=== PATIENT | male | born 1955 | race Caucasian/White ===

== ENCOUNTER 2020-01-05 07:53 | Outpatient (CLI) | payer BC, SELFPAY ==
[2020-01-05 08:28] LABS: Alanine Aminotransferase 44 U/L (4-50); Albumin Level 4.2 g/dL (3.5-5.1); Alkaline Phosphatase 88 U/L (38-126); Aspartate Amino Transferase 30 U/L (17-59); Bilirubin,Total 0.3 mg/dL (0.2-1.3); Blood Urea Nitrogen 18 mg/dL (9-20); Calcium 8.7 mg/dL (8.4-10.2); Carbon Dioxide 28 mmol/L (22-30); Chloride 103 mmol/L (98-107); Cholesterol 142 mg/dL (0-200); Estimated Glomerular Filt Rate > 60; Glucose 210 mg/dL (75-110); HDL Direct 45 mg/dL; Potassium 3.8 mmol/L (3.4-5.0); Sodium 139 mmol/L (137-145); Triglycerides 183 mg/dL (<150)
[2020-01-05 08:29] LABS: Hemoglobin A1C 8.5 % (<5.7)
[2020-01-05 08:39] LABS: LDL Cholesterol Direct 72 mg/dL
[2020-01-05 08:57] LABS: Prostate Specific Antigen 1.3 ng/mL (< OR = 4.0)
== END 2020-01-05 07:54 | disposition home or self-care (01) ==
PROVIDERS: PCP Family Medicine; Visit Provider Physician Assistant
DX: I10 Essential (primary) hypertension (principal); E11.9 Type 2 diabetes mellitus without complications; E78.5 Hyperlipidemia, unspecified; Z12.5 Encounter for screening for malignant neoplasm of prostate
CPT/HCPCS: 36415; 80053; 80061; 83036; 84153; G0103

== ENCOUNTER 2020-05-14 08:42 | Outpatient (CLI) | payer BC, SELFPAY ==
[2020-05-14 09:13] LABS: Hemoglobin A1C 8.5 % (<5.7)
[2020-05-14 09:14] LABS: Alanine Aminotransferase 55 U/L (4-50); Albumin Level 4.4 g/dL (3.5-5.1); Alkaline Phosphatase 84 U/L (38-126); Anion Gap 9 mmol/L (8-16); Aspartate Amino Transferase 36 U/L (17-59); Bilirubin,Total 0.6 mg/dL (0.2-1.3); Blood Urea Nitrogen 21 mg/dL (9-20); Carbon Dioxide 30 mmol/L (22-30); Chloride 99 mmol/L (98-107); Estimated Glomerular Filt Rate > 60; Glucose 225 mg/dL (75-110); Potassium 3.8 mmol/L (3.4-5.0); Sodium 138 mmol/L (137-145)
== END 2020-05-14 08:43 | disposition home or self-care (01) ==
PROVIDERS: PCP Family Medicine; Visit Provider Family Medicine
DX: E11.9 Type 2 diabetes mellitus without complications (principal)
CPT/HCPCS: 36415; 80053; 83036

== ENCOUNTER 2020-05-29 12:00 | Outpatient (NON) | payer BC, SELFPAY ==
[2020-05-29 20:46] LABS: SARS-CoV-2 RNA PCR Positive
== END 2020-05-29 12:01 ==
LOC: ANHCOVIDDT 12:01
PROVIDERS: PCP Family Medicine; Visit Provider Physician Assistant
DX: U07.1 COVID-19 (principal)
CPT/HCPCS: 87635; C9803; U0003

== ENCOUNTER → 2020-07-17 14:17 | Outpatient (CLI) | payer BC, SELFPAY ==
--- NOTE | ~2020-07-17 | XR_ITS ---
XR chest 2V 07/17/2020 14:28 INDICATION: Shortness of breath. Covid 19. PROCEDURE: 2 views chest COMPARISON: No prior studies for comparison. FINDINGS: Fracture, dislocation or subluxation is not identified. The soft tissues appear within norm al limits. No foreign bodies are identified. IMPRESSION: 1: NO ACUTE BONE OR JOINT ABNORMALITY IDENTIFIED. Reviewed, dictated and finalized at location A. L CABINET FINISHER
== END ==
PROVIDERS: PCP Family Medicine; Visit Provider Physician Assistant
DX: R06.02 Shortness of breath (principal)
CPT/HCPCS: 71046

== ENCOUNTER 2020-08-15 07:37 | Outpatient (CLI) | payer BC, SELFPAY ==
[2020-08-15 08:32] LABS: Hemoglobin A1C 8.8 % (<5.7)
== END 2020-08-15 07:38 | disposition home or self-care (01) ==
PROVIDERS: PCP Family Medicine; Visit Provider Physician Assistant
DX: E11.9 Type 2 diabetes mellitus without complications (principal)
CPT/HCPCS: 36415; 83036

== ENCOUNTER → 2020-09-19 11:56 | Outpatient (CLI) | payer BC, SELFPAY ==
--- NOTE | ~2020-09-19 | XR_ITS ---
EXAMINATION: XR lumbar spine min 4V EXAM DATE: 09/19/2020 12:25 INDICATION: Right-sided low back pain for 3 weeks. TECHNIQUE: Lumber spine frontal, lateral, bilateral oblique projections. Coned down frontal and lat eral L5-S1 lumbar projections for interpretation. There is no prior study for comparison. FINDINGS: There is moderate disc disease L4-S1, mild to moderate from T12 to L2. No spondylolysis. Mo derate lumbar facet arthropathy. Vertebral body heights are maintained. There are no acute fractures identified. No endplate erosive change. Bilateral hip replacements. IMPRESSION: 1. Moderate lower lumbar spondylosis. 2. No acute findings. Reviewed, dictated and finalized at location A. OR ADMINISTRATIVE ASSISTANT
== END ==
PROVIDERS: PCP Family Medicine; Visit Provider Family Medicine
DX: M54.5 Low back pain (principal); M47.816 Spondylosis without myelopathy or radiculopathy, lumbar region
CPT/HCPCS: 72110

== ENCOUNTER → 2020-10-11 01:51 | Outpatient (CLI) | payer MEDICARE, BC, SELFPAY ==
[2020-10-11 18:53] LABS: SARS-CoV-2 RNA PCR Negative
== END ==
PROVIDERS: PCP Family Medicine; Visit Provider Internal Medicine Cardiovascular Disease
DX: Z01.812 Encounter for preprocedural laboratory examination (principal); Z20.822 Contact with and (suspected) exposure to COVID-19
CPT/HCPCS: C9803; U0003; U0005

== ENCOUNTER 2020-10-11 08:34 | Outpatient (CLI) | payer MEDICARE, BC, SELFPAY ==
[2020-10-11 09:15] LABS: Hemoglobin 16.5 g/dL (14.0-18.0); Mean Corpuscular HGB Conc 34.4 g/dl (32-36); Mean Corpuscular Hemoglobin 29.9 pg (26-34); Mean Corpuscular Volume 87.1 fl (80-100); Mean Platelet Volume 8.6 fl (7.4-10.4); Platelet Count Result 220 k/mm3 (150-375); Red Blood Count 5.51 M/mm3 (4.6-6.20); Red Cell Distribution Width 14.4 % (11.5-14.5); White Blood Count 6.7 K/mm3 (4.5-10.0)
[2020-10-11 09:31] LABS: Alanine Aminotransferase 39 U/L (4-50); Albumin Level 4.3 g/dL (3.5-5.1); Alkaline Phosphatase 72 U/L (38-126); Anion Gap 5 mmol/L (8-16); Aspartate Amino Transferase 31 U/L (17-59); Bilirubin,Total 0.4 mg/dL (0.2-1.3); Blood Urea Nitrogen 19 mg/dL (9-20); Calcium 9.5 mg/dL (8.4-10.2); Carbon Dioxide 32 mmol/L (22-30); Chloride 101 mmol/L (98-107); Cholesterol 134 mg/dL (0-200); Estimated Glomerular Filt Rate > 60; Glucose 141 mg/dL (75-110); HDL Direct 46 mg/dL; Potassium 3.9 mmol/L (3.4-5.0); Sodium 138 mmol/L (137-145); Triglycerides 138 mg/dL (<150)
[2020-10-11 09:32] LABS: Hemoglobin A1C 7.6 % (<5.7)
[2020-10-11 09:43] LABS: LDL Cholesterol Direct 60 mg/dL
== END 2020-10-11 08:35 | disposition home or self-care (01) ==
PROVIDERS: PCP Family Medicine; Visit Provider Family Medicine
DX: R06.02 Shortness of breath (principal); R53.83 Other fatigue; I10 Essential (primary) hypertension; E11.9 Type 2 diabetes mellitus without complications; E78.2 Mixed hyperlipidemia
CPT/HCPCS: 36415; 80053; 80061; 83036; 84443; 85027; C9803; U0003; U0005

== ENCOUNTER 2020-10-14 01:13 | Day surgery (SDC) | payer MEDICARE, BC, SELFPAY ==
[2020-10-13 12:44] VITALS: BMI 42.7
[2020-10-14] VITALS (9 sets, daily range): BP systolic 120–151; BP diastolic 75–92; PULSE 67–82; RESP 14–20; TEMP 36.4–36.6; O2SAT 94–98; BMI 42.7
--- NOTE | 2020-10-14 09:00 | SUR.PREOP ---
ARRIVES TO [facility] AMBULATORY W/ AT SIDE FOR SCHEDULED LHC W/ DR. AGUAYO. A&OX3, STEADY GAIT, DENIES CP OR SOB. ORIENTED TO ROOM, PLAN OF CARE, ORDERS, PROCEDURE. IV STARTED, CONSENT SIGNED, VS OBTAINED, SKIN PREPPED, PULSES MARKED. LABS HAVE ALREADY BEEN OBTAINED. VOICES NO C/O. WILL CONTINUE TO MONITOR.
--- NOTE | 2020-10-14 09:13 | WPDMODSED ---
Moderate Sedation Note-Pt Data Patient Data Allergies Allergy/AdvReac Type Severity Reaction Status Date / Time No Known Allergies Allergy Verified 09/12/20 10:53 Home Medications Medication Instructions Recorded Confirmed Type magnesium 250 mg tablet 250 mg PO DAILY 06/01/19 10/13/20 History omega-3 fatty acids-fish oil 360 1 cap PO DAILY 06/01/19 10/13/20 History mg-1,200 mg capsule amlodipine 10 mg tablet 10 mg PO DAILY #90 tablet 05/13/20 10/13/20 Rx blood sugar diagnostic #50 ea 05/13/20 05/13/20 Rx blood-glucose meter #1 ea 05/13/20 05/13/20 Rx lancets 28 gauge #100 ea 05/13/20 05/13/20 Rx metformin 1,000 mg tablet 1,000 mg PO BID #180 tablet 05/13/20 10/13/20 Rx montelukast 10 mg tablet 10 mg PO DAILY #90 tablet 05/13/20 10/13/20 Rx valsartan 320 1 tablet PO DAILY #90 tablet 05/13/20 10/13/20 Rx mg-hydrochlorothiazide 25 mg tablet sitagliptin 100 mg tablet 100 mg PO DAILY #90 tablet 05/15/20 10/13/20 Rx albuterol sulfate 90 mcg/actuation 1 inh INHALATION Q4H PRN #8.5 g 08/09/20 10/13/20 Rx aerosol inhaler dulaglutide 0.75 mg/0.5 mL 1.5 mg SUBCUT WEEKLY #18 ml 09/12/20 10/13/20 Rx subcutaneous pen injector metoprolol succinate 25 mg 25 mg PO DAILY #90 tablet 09/12/20 10/13/20 Rx tablet,extended release 24 hr aspirin 81 mg PO DAILY 10/13/20 10/13/20 History Current Medications: Active Medications Sodium Chloride (Normal Saline Iv) 500 mls @ 100 mls/hr IV CONT .Q5H JOSE M Sedation/Anesthesia: No previous sedation/anesthesia problems (including family history). [facility] Past Medical History Medical History Arthritis of both wrists Diabetes Hypertension Obesity Surgical History Surgical History History of carpal tunnel surgery (~2006) History of hip replacement (~2018) 2018- Right 2012- Left History of knee replacement (~2014) bilateral Family History Family History Father Diabetes mellitus Hypertension Carcinoma of colon Grandparent Diabetes mellitus Hypertension Mother Family history of glaucoma Hypertension Family history of elevated blood lipids Carcinoma of colon Family history of malignant neoplasm of breast in first degree relative Social History Social History Smoking status: Never smoker Second hand tobacco smoke exposure: No Alcohol intake: current Substance use: never Substance use type: does not use Living arrangements: with family Spiritual care concerns: No Mod Sed Physical Exam Physical Exam Pre Procedural Exam: Normal: Airway Hours since solid foods: 10 Hours since liquid intake: 10 Internal Medicine - PN: Obj Da Meds/Results Medications: Active Medications Generic Name Dose Route Start Last Admin Trade Name Freq PRN Reason Stop Dose Admin Sodium Chloride 500 mls @ 100 mls/hr 10/14/20 09:00 Normal Saline Iv IV CONT .Q5H [facility] ASA Classification/Sedation ASA Classification/Sedation Risks: Risks, benefits and alternatives explained and patient/family accepted plan for sedation. Patient re-evaluated immediately prior to sedation.
--- NOTE | 2020-10-14 10:39 | WPDHPUPDATE1 ---
History and Physical Update Update Date/Time: 10/14/20 10:39 History and Physical has been reviewed, including an updated exam of the patient. There are NO changes in the patient's condition. Risks, benefits, and alternatives have been discussed and questions answered. Patient agrees to proceed with procedure.
--- NOTE | 2020-10-14 11:20 | WPDCARDPROC ---
Cardiac Cath Procedure Note Date of procedure:: 10/14/20 Performing physician:: Saul Berger MD Procedure Procedure note:: LEFT HEART CATHETERIZATION AND CORONARY ANGIOGRAM REPORT DATE OF PROCEDURE:10/14/2020 INDICATION FOR PROCEDURE: shortness of breath, CHF with reduced ejection fraction, abnormal MPI BRIEF CLINICAL HISTORY: 65-year-old male with hypertension, type 2 diabetes mellitus, morbid obesity. Patient was referred by Dr. Munson for coronary angiogram in the setting of CHF with reduced ejection fraction and abnormal MPI. Patient had MPI done on 10/01/2020 which reportedly showed LVEF 37%; medium-sized area of moderate to severe apical, apical lateral, apical inferior infarction with ebonie-infarct ischemia involving the apical inferior and lateral segments. Benefits and risks of the procedure were discussed with the patient in depth, and informed consent was obtained prior to the procedure. Risks of the procedure include but are not limited to vascular complications including groin hematoma, retroperitoneal bleed, vessel perforation; periprocedural KS, cardiac arrhythmias, stroke, contrast induced nephropathy, and . After discussing all the benefits, risks and alternatives, patient was willing to proceed with the procedure. PROCEDURES PERFORMED: 1. Left heart catheterization- Selective left and right coronary angiogram; left ventriculogram and hemodynamic assessment 2. Selective right common femoral angiogram and deployment of Angio-Seal hemostatic device 3. Moderate sedation-CPT code 55120 MODERATE SEDATION: Midazolam 1 mg; fentanyl 25 mcg; Start time 1050 , Stop time 1115 ; Total [id number] time 25 minutes; Leydi Troy RN was trained observer for moderate sedation. ACCESS SITE: Right common femoral artery PROCEDURE NOTE: After obtaining informed consent, patient was brought to catheterization lab and prepped and draped in a usual sterile manner. After local anesthesia with lidocaine, right common femoral artery access was taken with micropuncture needle followed by insertion of a 6 Macanese sheath. Selective left and right coronary angiogram was performed using 5 Macanese JL5 and JR4 catheters respectively. Orthogonal views were taken. Next, a 5 Macanese pigtail catheter was advanced in the LV cavity and was flushed with normal saline. LV pressure measurement was performed. After this, left ventriculogram was performed. The catheter was flushed again, and gradient across the aortic valve was measured on the pullback of the catheter. Finally, selective right common femoral angiogram was performed followed by successful deployment of Angio-Seal vascular closure device. Patient tolerated procedure well without any immediate procedure related complications. FINDINGS: LEFT MAIN CORONARY: The left main coronary is a medium to large caliber, very short vessel, no significant focal stenosis. The vessel bifurcates LAD and left circumflex branches. LEFT ANTERIOR DESCENDING ARTERY: the LAD is a large caliber vessel in the proximal segment, tapers in the mid segment, becomes very tortuous, and divides into branches which do not reach the apex. The major diagonal branch is a medium caliber vessel, tortuous. No significant focal stenosis in the LAD or its branches. LEFT CIRCUMFLEX ARTERY: The left circumflex artery is a large caliber, tortuous vessel, continues as large size OM 1 branch without segment focal stenosis. RIGHT CORONARY ARTERY: The right coronary artery is a large caliber, tortuous vessel, gives rise to large-sized tortuous, PDA and PLV branches without significant focal stenosis. LEFT VENTRICULOGRAM: Ventricular ectopy was seen during the left ventriculogram. Mild LV systolic dysfunction, ejection fraction 40-45%. LVEDP 10 mmHg. HEMODYNAMIC ASSESSMENT: Opening pressure 105/71 mmHg , closing pressure 127/67 mmHg , LVEDP 10 , no significant gradient across aortic valve on the pullback of pigtail catheter. RIGHT CO
--- NOTE | 2020-10-14 15:30 | SUR.PHASEII ---
ALL DISCHARGE INSTRUCTIONS AND FOLLOW UP CARE DISCUSSED W/ PT. QUESTIONS ANSWERED. VOICED UNDERSTANDING. DISCHARGED HOME, OUT VIA WC TO 'S WAITING CAR W/ ALL PERSONAL BELONGINGS AND DISCHARGE PACKET. VOICES NO C/O. NO DISTRESS NOTED.
== END 2020-10-14 15:30 | disposition home or self-care (01) ==
PROVIDERS: PCP Family Medicine; Visit Provider Internal Medicine Cardiovascular Disease
PROC: 4A023N7 Measurement of Cardiac Sampling and Pressure, Left Heart, Percutaneous Approach (ICD-10-PCS; CPT 93452; principal; 2020-10-14 10:00)
DX: R94.39 Abnormal result of other cardiovascular function study (principal); R06.02 Shortness of breath; R07.89 Other chest pain; I11.0 Hypertensive heart disease with heart failure; I50.9 Heart failure, unspecified; I42.9 Cardiomyopathy, unspecified; E11.9 Type 2 diabetes mellitus without complications; E66.01 Morbid (severe) obesity due to excess calories; Z68.41 Body mass index [BMI] 40.0-44.9, adult; Z79.4 Long term (current) use of insulin; Z79.84 Long term (current) use of oral hypoglycemic drugs; Z79.82 Long term (current) use of aspirin
CPT/HCPCS: 93458; C1760; C1887; C1894; G0269; J1644; J2250; J3010; J7040

== ENCOUNTER 2020-11-05 08:16 | Outpatient (CLI) | payer MEDICARE, BC, SELFPAY ==
[2020-11-05 09:06] LABS: Anion Gap 5 mmol/L (8-16); Blood Urea Nitrogen 18 mg/dL (9-20); Calcium 8.6 mg/dL (8.4-10.2); Carbon Dioxide 29 mmol/L (22-30); Chloride 105 mmol/L (98-107); Estimated Glomerular Filt Rate > 60; Glucose 133 mg/dL (75-110); Potassium 3.8 mmol/L (3.4-5.0); Sodium 139 mmol/L (137-145)
== END 2020-11-05 08:17 | disposition home or self-care (01) ==
PROVIDERS: PCP Family Medicine; Visit Provider Internal Medicine Cardiovascular Disease
DX: E11.59 Type 2 diabetes mellitus with other circulatory complications (principal); I10 Essential (primary) hypertension; I42.8 Other cardiomyopathies
CPT/HCPCS: 36415; 80048

== ENCOUNTER 2020-11-28 07:32 | Outpatient (CLI) | payer MEDICARE, BC, SELFPAY ==
[2020-11-28 08:09] LABS: Anion Gap 5 mmol/L (8-16); Blood Urea Nitrogen 19 mg/dL (9-20); Calcium 8.4 mg/dL (8.4-10.2); Carbon Dioxide 29 mmol/L (22-30); Chloride 105 mmol/L (98-107); Estimated Glomerular Filt Rate > 60; Glucose 155 mg/dL (75-110); Potassium 3.4 mmol/L (3.4-5.0); Sodium 139 mmol/L (137-145)
== END 2020-11-28 07:33 | disposition home or self-care (01) ==
PROVIDERS: PCP Family Medicine; Visit Provider Internal Medicine Cardiovascular Disease
DX: I42.9 Cardiomyopathy, unspecified (principal)
CPT/HCPCS: 36415; 80048

== ENCOUNTER 2020-12-15 07:53 | Outpatient (CLI) | payer MEDICARE, BC, SELFPAY ==
--- NOTE | 2020-12-17 13:29 | WPDHOMESLEEP ---
Sleep Study - Home Unattended Date of Study: 12/15/20 Ordering Provider: Seamus Munson MD Interpreting Provider: Danyell Mustafa MD Home Sleep Study Type: Apnea Link Air Height: 1.83 m Weight: 138.346 kg Body Mass Index: 41.3 Neck Circumference (inches): 18.25 [place]: 9 Reason for Sleep Study Tired in the daytime, hypersomnolence, shortness of breath after COVID-19 Sleep History Olegario Garcia is a 65-year-old man who is tired all the time. This is been going on for 6 months after he had COVID-19. 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 He had a cardiac catheterization that showed no blockages but 1 area of his heart was not working properly. He was referred for sleep evaluation. He wakes up during the night and has excessive daytime sleepiness. He does not awaken from sleep feeling short of breath. He does not awaken at night with heartburn, belching or coughing. He rarely snores. He does not snore loudly enough that others complain about it. He does not have trouble sleep with a cold. He does not wake up gasping for breath at night. He does not have breathing problems at night reported to him by others. He occasionally sweats excessively at night. He does not notice his heart pounding or beating irregularly at night. He occasionally falls asleep during the day but never falls asleep involuntarily and never falls asleep while driving. He does not have loss of muscle tone with strong emotion. He does not have daytime difficulties due to excessive sleepiness. He does not feel paralyzed on waking or falling asleep. He does not have vivid dreamlike scenes upon awakening or falling asleep. He does not feel afraid to go to sleep. He does not have nightmares. He occasionally remembers his dreams. He occasionally has racing thoughts. He never feels sad or depressed. He occasionally has anxiety. He does not have muscular tension. He does not notice parts of his body jerking. He does not kick at night. He does not have crawling and aching feelings in his legs. He rarely has leg cramps at night. He does not have morning jaw pain. He does not grind his teeth during sleep. He occasionally has bothered by pain in his back during the day. He is not awakened by pain at night. He rarely wakes up feeling stiff in the morning. He occasionally wakes up with sore or achy muscles. He occasionally wakes up with pain in the neck and spine. He has fatigue and sexual problems. he stopped using testosterone shots in the beginning of September. He has seasonal allergies. He has chronic pain with arthritis. Normal bedtime is 11:00 p.m. falling asleep within 30 seconds typically waking twice at night to go urinate, then he will stay awake for a while just thinking about different things in his life. He takes him an hour to get back to sleep. He wakes the morning at 7:00 a.m.. He estimates getting 7-1/2 hours of sleep at night. Habits: never smoked tobacco. Caffeine 3 times a week. No alcohol or recreational drugs. [facility] Past Medical History Medical History (Updated 12/17/20 @ 13:50 by Danyell Mustafa MD) Arthritis of both wrists Diabetes Dyspnea on exertion Fatigue Hypertension Obesity Seasonal allergies Surgical History Surgical History History of carpal tunnel surgery (~2006) History of hip replacement (~2018) 2018- Right 2011- Left History of knee replacement (~2014) bilateral Family History Family History Father Diabetes mellitus Hypertension Carcinoma of colon Grandparent Diabetes mellitus Hypertension Mother Family history of glaucoma Hypertension Family history of elevated blood lipids Carcinoma of colon Family history of malignant neoplasm of breast in first degree relative Social History Social History (Reviewed 12/17/20 @ 13:30 by Danyell Gorman
[2020-12-17 13:34] VITALS: BMI 41.3
== END 2020-12-15 07:54 | disposition home or self-care (01) ==
LOC: ANHCSM 07:54
PROVIDERS: PCP Family Medicine; Visit Provider Internal Medicine Cardiovascular Disease
DX: G47.33 Obstructive sleep apnea (adult) (pediatric) (principal)
CPT/HCPCS: 95806

== ENCOUNTER 2021-01-06 07:44 | Outpatient (CLI) | payer MEDICARE, BC, SELFPAY ==
[2021-01-06 08:08] LABS: Hemoglobin A1C 6.3 % (<5.7)
[2021-01-06 08:10] LABS: Alanine Aminotransferase 21 U/L (4-50); Alkaline Phosphatase 84 U/L (38-126); Anion Gap 11 mmol/L (8-16); Aspartate Amino Transferase 22 U/L (17-59); Bilirubin,Total 0.5 mg/dL (0.2-1.3); Blood Urea Nitrogen 16 mg/dL (9-20); Calcium 9.3 mg/dL (8.4-10.2); Carbon Dioxide 28 mmol/L (22-30); Chloride 105 mmol/L (98-107); Cholesterol 138 mg/dL (0-200); Estimated Glomerular Filt Rate > 60; Glucose 134 mg/dL (75-110); HDL Direct 40 mg/dL; Magnesium 2.2 mg/dL (1.6-2.3); Potassium 3.5 mmol/L (3.4-5.0); Sodium 144 mmol/L (137-145); Triglycerides 92 mg/dL (<150)
[2021-01-06 08:20] LABS: LDL Cholesterol Direct 63 mg/dL
[2021-01-06 08:39] LABS: Prostate Specific Antigen 2.6 ng/mL (< OR = 4.0)
== END 2021-01-06 07:45 | disposition home or self-care (01) ==
PROVIDERS: PCP Family Medicine; Visit Provider Physician Assistant
DX: Z12.5 Encounter for screening for malignant neoplasm of prostate (principal); E11.9 Type 2 diabetes mellitus without complications; E78.5 Hyperlipidemia, unspecified
CPT/HCPCS: 36415; 80053; 80061; 83036; 83735; 84153; G0103

== ENCOUNTER 2021-05-05 09:39 | Outpatient (CLI) | payer MEDICARE, BC, SELFPAY ==
[2021-05-05 10:07] LABS: Hematocrit 39.3 % (42.0-52.0); Mean Corpuscular HGB Conc 33.1 g/dl (32-36); Mean Corpuscular Hemoglobin 28.6 pg (26-34); Mean Corpuscular Volume 86.4 fl (80-100); Mean Platelet Volume 8.1 fl (7.4-10.4); Platelet Count Result 255 k/mm3 (150-375); Red Blood Count 4.55 M/mm3 (4.6-6.20); White Blood Count 7.6 K/mm3 (4.5-10.0)
[2021-05-05 10:18] LABS: Alanine Aminotransferase 18 U/L (4-50); Albumin Level 4.4 g/dL (3.5-5.1); Alkaline Phosphatase 114 U/L (38-126); Anion Gap 7 mmol/L (8-16); Aspartate Amino Transferase 20 U/L (17-59); Bilirubin,Total 0.3 mg/dL (0.2-1.3); Blood Urea Nitrogen 13 mg/dL (9-20); Calcium 9.1 mg/dL (8.4-10.2); Carbon Dioxide 30 mmol/L (22-30); Chloride 104 mmol/L (98-107); Cholesterol 135 mg/dL (0-200); Estimated Glomerular Filt Rate > 60; Glucose 116 mg/dL (65-110); HDL Direct 41 mg/dL; Potassium 3.8 mmol/L (3.4-5.0); Sodium 141 mmol/L (137-145); Triglycerides 100 mg/dL (<150)
[2021-05-05 10:24] LABS: Hemoglobin A1C 6.1 % (<5.7)
[2021-05-05 10:25] LABS: Creatinine Urine 245.7 mg/dL
[2021-05-05 10:29] LABS: LDL Cholesterol Direct 71 mg/dL
[2021-05-05 11:00] LABS: MALB Creatinine Ratio 96.5 mg/g (0-30)
[2021-05-07 17:36] LABS: Iron 55 ug/dL (49-181)
[2021-05-07 17:46] LABS: Percent Iron Saturation 18 % (20-50)
== END 2021-05-05 09:40 | disposition home or self-care (01) ==
LOC: ANHLAB 09:44
PROVIDERS: PCP Family Medicine; Visit Provider Family Medicine
DX: D64.9 Anemia, unspecified (principal); E78.2 Mixed hyperlipidemia; E11.9 Type 2 diabetes mellitus without complications
CPT/HCPCS: 36415; 80053; 80061; 82043; 82728; 83036; 83540; 83550; 84443; 85027

== ENCOUNTER 2021-05-29 08:12 | Outpatient (CLI) | payer MEDICARE, BC, SELFPAY ==
--- NOTE | 2021-06-16 17:30 | WPDSLEEPSTUD ---
Sleep Study Date of Study: 05/29/21 <Heather Cool DO - Last Filed: 06/16/21 17:55> Ordering Provider: Danyell Mustafa MD <Heather Cool DO - Last Filed: 06/16/21 17:55> Interpreting Physician: Heather Cool DO <Heather Cool, DO - Last Filed: 06/16/21 17:55> Sleep Study Type: CPAP Titration <Heather Cool DO - Last Filed: 06/16/21 17:55> Height: 1.83 m <Heather Cool DO - Last Filed: 06/16/21 17:55> Weight: 133.81 kg <Heather Cool DO - Last Filed: 06/16/21 17:55> Body Mass Index: 40.0 <Heather Cool DO - Last Filed: 06/16/21 17:55> Neck Circumference (inches): 18 <Heather Cool DO - Last Filed: 06/16/21 17:55> [place]: 11 <Heather Cool DO - Last Filed: 06/16/21 17:55> Reason for Sleep Study The patient had an HSAT on 12/15/2020 that showed moderate obstructive sleep apnea with an AHI of 20, desaturation to 70%, 16 minutes spent below 88% ; 3% of the study, snoring; 89% of the apneas scored as obstructive, and 11% were central/mixed. THe patient was not a candidate for an ASV titration due to an EF of 36% in September 2020. <Heather Cool, DO - Last Filed: 06/16/21 17:55> Sleep History Olegario Garcia is a 65 year old man with constant fatigue which started after COVID in June 2020. He had a home sleep test on December 15, 2020 which showed moderate obstructive sleep apnea with an AHI of 20, desaturation to 70% with a minority of apneas scored as central. He had a CPAP /BiPAP titration that did not have an optimal pressure. He had increased number of central apneas with application of positive pressure. He does need to have an ASV titration however this has not occurred yet. He started hemodialysis in December, and has a maturing fistula in the left forearm. He wakes up during the night, has excessive daytime sleepiness. He does not awaken from sleep feeling short of breath and does not have GERD symptoms at night. He rarely snores. He does not wake up gasping for breath at night. He occasionally sweats at night. He denies his heart pounding or beating irregularly at night. He occasionally falls asleep during the day but never falls asleep involuntarily and never falls asleep while driving. He does not have loss of muscle tone with strong emotion. He does not have daytime difficulties due to excessive sleepiness. He does not feel paralyzed on waking or falling asleep. He does not have vivid dreamlike scenes upon awakening or falling asleep. He does not feel afraid to go to sleep. He does not have nightmares. He occasionally remembers his dreams. He occasionally has racing thoughts. He never feels sad or depressed. He occasionally has anxiety. He does not have muscular tension. He does not notice parts of his body jerking. He does not kick at night. He does not have crawling and aching feelings in his legs. He rarely has leg cramps at night. He does not have morning jaw pain. He does not grind his teeth during sleep. He occasionally has bothered by pain in his back during the day. He is not awakened by pain at night. He rarely wakes up feeling stiff in the morning. He occasionally wakes up with sore or achy muscles. He occasionally wakes up with pain in the neck and spine. He has fatigue and sexual problems. he stopped using testosterone shots in the beginning of September. He has seasonal allergies. He has chronic pain with arthritis. Normal bedtime is 11:00 p.m. falling asleep within 30 seconds typically waking twice at night to go urinate, then he will stay awake for a while just thinking about different things in his life. He takes him an hour to get back to sleep. He wakes the morning at 7:00 a.m.. He estimates getting 7-1/2 hours of sleep at night. Habits: never smoked tobacco. Caffeine 3 times a week. No alcohol or recreational drugs. <Heather Cool, DO - Last Filed: 11
[2021-06-16 17:37] VITALS: BMI 40.0
== END 2021-05-30 08:47 | disposition home or self-care (01) ==
LOC: ANHCSM 08:15
PROVIDERS: PCP Family Medicine; Visit Provider Internal Medicine Critical Care Medicine
DX: G47.31 Primary central sleep apnea (principal)
CPT/HCPCS: 95811

== ENCOUNTER 2021-06-11 07:32 | Outpatient (CLI) | payer MEDICARE, BC, SELFPAY ==
[2021-06-11 08:16] LABS: Hematocrit 42.1 % (42.0-52.0); Hemoglobin 13.9 g/dL (14.0-18.0); Immature Reticulocyte Fraction 13.8 % (3.0-15.9); Mean Corpuscular Hemoglobin 28.7 pg (26-34); Mean Platelet Volume 8.3 fl (7.4-10.4); Platelet Count Result 210 k/mm3 (150-375); Red Blood Count 4.84 M/mm3 (4.6-6.20); Red Cell Distribution Width 16.9 % (11.5-14.5); Reticulocyte Hemoglobin Conten 35.5 pg (28.2-35.7); Reticulocyte Percent 1.96 % (0.7-4.3); Reticulocytes Absolute 0.09 B/L (32.2-175.7); White Blood Count 6.6 K/mm3 (4.5-10.0)
[2021-06-11 12:43] LABS: Folic Acid 15.4 ng/mL (2.76->20)
== END 2021-06-11 07:33 | disposition home or self-care (01) ==
PROVIDERS: PCP Family Medicine; Referring Provider Nurse Practitioner Adult Health; Visit Provider Family Medicine
DX: D64.9 Anemia, unspecified (principal); I42.8 Other cardiomyopathies
CPT/HCPCS: 36415; 82607; 82746; 85027; 85046

== ENCOUNTER 2021-07-02 11:04 | Emergency (ER) | payer MEDICARE, BC, SELFPAY ==
--- NOTE | ~2021-07-02 | XR_ITS ---
EXAMINATION: XR hand RT min 3V DATE: 07/02/2021 12:21 INDICATION: Dog bite with laceration to the proximal right hand TECHNIQUE: Posteroanterior, oblique and lateral views of the right hand were obtained. COMPARISON: 04/24/2020 FINDINGS: Soft tissue swelling at the dorsum of the right hand post proximal and distal to likely laceration ov erlying the midportion of the metacarpals. No evident soft tissue gas or radiopaque foreign bodies. A dvanced osteoarthritis at the radioscaphoid articulation and severe osteoarthritis at the lunocapitat e articulation of the midcarpal joint with mild proximal migration of the capitate. 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 Additional moderate osteoarthritis at the distal radioulnar brenda int and mild osteoarthritis at the triscaphe, first carpometacarpal and multiple metacarpophalangeal and interphalangeal joints. No periosteal reaction or acute appearing cortical erosion to suggest ost eomyelitis. IMPRESSION: 1. No lesion suspicious for osteomyelitis or other acute osseous abnormality. 2. 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 Reviewed, dictated and finalized at location A. THCARE PROJECT MANAGER IMPRESSION: 1. No lesion suspicious for osteomyelitis or other acute osseous abnormality. 2. 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
[2021-07-02 11:19] VITALS: BP 148/73; PULSE 85; RESP 15; O2SAT 100
[2021-07-02 12:00] VITALS: BP 140/70; PULSE 85; RESP 16; TEMP 36.7; O2SAT 99
[2021-07-02] MEDS: TETANUS,DIPHTHERIA,AC PERTUSSIS ADULT (0.5 ML) BOOSTRIX IM (13:09)
--- NOTE | 2021-07-02 13:15 | ED.WOUNDLAC ---
HPI - Wound/Laceration General Chief Complaint: Wound/Laceration Stated Complaint: right hand wound Time Seen by Provider: 07/02/21 11:45 Source: patient Mode of arrival: ambulatory Limitations: no limitations History of Present Illness HPI narrative: This is a 65-year-old male that presents to the emergency department for a dog bite. Reports he was playing with his dog today and the dog accidentally bit his hand instead of the toy. His dog is up-to-date on vaccinations. Patient is not up-to-date on his tetanus vaccine. Reports some swelling and pain to the area. Denies decreased range of motion or numbness. Related Data Home Medications Medication Instructions Recorded Confirmed magnesium 250 mg tablet 250 mg PO DAILY 06/01/19 06/03/21 omega-3 fatty acids-fish oil 360 1 cap PO DAILY 06/01/19 06/03/21 mg-1,200 mg capsule aspirin 81 mg PO DAILY 10/13/20 06/03/21 multivitamin 1 tablet PO DAILY 03/20/21 06/03/21 loratadine 10 mg tablet 10 mg PO DAILY 05/12/21 06/03/21 spironolactone 25 mg tablet 25 mg PO DAILY 06/03/21 06/03/21 Allergies Allergy/AdvReac Type Severity Reaction Status Date / Time No Known Allergies Allergy Verified 07/02/21 12:05 Review of Systems Review of Systems: CONSTITUTIONAL: Denies fever SKIN: Reports laceration NEUROLOGIC: Denies numbness All systems reviewed & are unremarkable except as noted in HPI and below PMFSH Past Medical History Medical History Arthritis of both wrists Cardiomyopathy Diabetes Dyspnea on exertion Encounter for immunization Fatigue Hypertension Microalbuminuria due to type 2 diabetes mellitus Obesity Seasonal allergies Surgical History Surgical History History of carpal tunnel surgery (~2006) History of hip replacement (~2017) 2018- Right 2011- Left History of knee replacement (~2014) bilateral S/P cardiac cath 09/2020 Normal coronaries. EF 40% Family History Family History Father Diabetes mellitus Hypertension Carcinoma of colon Grandparent Diabetes mellitus Hypertension Mother Family history of glaucoma Hypertension Family history of elevated blood lipids Carcinoma of colon Family history of malignant neoplasm of breast in first degree relative Social History Social History Second hand tobacco smoke exposure: No Alcohol intake: current Substance use: never Substance use type: does not use Spiritual care concerns: No Exam Narrative: GENERAL: Well-appearing, well-nourished, and in no acute distress. HEAD: Normocephalic, atraumatic. EYES: EOMI. EXTREMITIES: Normal range of motion. Right hand dorsal surface with 3 cm linear laceration into subcutaneous tissue with mild swelling to the area. No erythema or abnormal drainage. Wound is fairly well approximated. No active bleeding SKIN: Warm, dry, no rash. NEURO: No focal deficits. Alert and oriented x3. PSYCH: Normal mood and affect Course Vital Signs Vital signs: Vital Signs Pulse Rate 85 07/02/21 11:19 Respiratory Rate 15 07/02/21 11:19 Blood Pressure 148/73 H 07/02/21 11:19 Pulse Oximetry 100 07/02/21 11:19 Temperature 98.0 F 07/02/21 12:00 Pulse Rate 85 07/02/21 12:00 Respiratory Rate 16 07/02/21 12:00 Blood Pressure 140/70 07/02/21 12:00 Pulse Oximetry 99 07/02/21 12:00 Procedures Laceration Laceration 1: Date: 07/02/21 Time: 13:00 Site: hand Side (If applicable): right Size (cm): 3 Description: linear Depth: simple, single layer Pre-repair: irrigated extensively ====== Skin Level ====== ====== Subcutaneous Layer ====== ====== Muscle Layer ====== ====== Tendon Layer ====== Dressing: Wound t
[2021-07-02] MEDS: AMOXICILLIN/CLAVULANATE K 875-125 MG TAB 1 TABLET PO (13:21)
== END 2021-07-02 13:46 | disposition home or self-care (01) ==
PROVIDERS: Emergency Provider Emergency Medicine; PCP Family Medicine
DX: S61.451A Open bite of right hand, initial encounter (principal); M19.032 Primary osteoarthritis, left wrist; M19.031 Primary osteoarthritis, right wrist; I42.9 Cardiomyopathy, unspecified; E11.9 Type 2 diabetes mellitus without complications; I10 Essential (primary) hypertension; E66.9 Obesity, unspecified; Z23 Encounter for immunization; W54.0XXA Bitten by dog, initial encounter
CPT/HCPCS: 73130; 90471; 90715; 99283; A9270

== ENCOUNTER 2021-07-14 00:15 | Day surgery (SDC) | payer MEDICARE, BC, SELFPAY ==
[2021-07-02 15:12] VITALS: BMI 40.8
[2021-07-14 07:59] VITALS: BP 115/62; RESP 18; TEMP 36.5; O2SAT 98; BMI 40.8
[2021-07-14 08:18] LABS: Glucose Point of Care 140 mg/dl (65-105)
[2021-07-14] MEDS: LACTATED RINGERS 1,000 ML 150 ML IV CONT (08:18)
--- NOTE | 2021-07-14 08:22 | WPDGICN ---
Assessment and Plan Assessment and plan (1) Family hx of colon cancer: Code(s): Z80.0 - Family history of malignant neoplasm of digestive organs Status: Acute Assessment and Plan: Patient's mother and father both have had colon cancer. For this reason screening colonoscopy advised 5 year intervals at least. (2) History of colon polyps: Code(s): Z86.010 - Personal history of colonic polyps Status: Acute Assessment and Plan: Patient has a prior history of colon polyps himself suggesting genetic tendency given his family history. Surveillance colonoscopy is suggested at least every 5 years. GI Consult Note Consult date/time: 07/14/21 08:22 HPI: Olegario Garcia is a 65 year old male Presents for screening colonoscopy. Patient's current weight appetite bowel movements are normal. He denies any blood in his stools. Patient has a prior history of colon polyps. Family history is significant both mother and father have had colon cancer. Patient presents today for neoplasia screening. Review of Systems Review of Systems: All systems reviewed & are unremarkable except as noted in HPI and below PMFSH Past Medical History Medical History Arthritis of both wrists Cardiomyopathy Diabetes Dyspnea on exertion Encounter for immunization Fatigue Hypertension Microalbuminuria due to type 2 diabetes mellitus Obesity Seasonal allergies Surgical History Surgical History History of carpal tunnel surgery (~2006) History of hip replacement (~2018) 2018- Right 2011- Left History of knee replacement (~2014) bilateral S/P cardiac cath 09/2020 Normal coronaries. EF 40% Family History Family History Father Diabetes mellitus Hypertension Carcinoma of colon Grandparent Diabetes mellitus Hypertension Mother Family history of glaucoma Hypertension Family history of elevated blood lipids Carcinoma of colon Family history of malignant neoplasm of breast in first degree relative Social History Social History Second hand tobacco smoke exposure: No Alcohol intake: current Alcohol use details: rarely Substance use: never Substance use type: does not use Living arrangements: with family Spiritual care concerns: No Meds Home Medications and Allergies Home Medications Medication Instructions Recorded Confirmed Type magnesium 250 mg tablet 250 mg PO DAILY 06/01/19 07/14/21 History omega-3 fatty acids-fish oil 360 1 cap PO DAILY 06/01/19 07/14/21 History mg-1,200 mg capsule blood-glucose meter #1 ea 05/13/20 07/14/21 Rx aspirin 81 mg PO DAILY 10/13/20 07/14/21 History blood sugar diagnostic #100 ea 01/09/21 07/14/21 Rx cholecalciferol (vitamin D3) 50 50 mcg PO DAILY #90 cap 01/09/21 07/14/21 Rx mcg (2,000 unit) capsule hydrochlorothiazide 25 mg tablet 25 mg PO DAILY #90 tablet 01/09/21 07/14/21 Rx lancets 33 gauge #100 ea 01/09/21 07/14/21 Rx metoprolol succinate 50 mg 50 mg PO DAILY #90 tablet 01/09/21 07/14/21 Rx tablet,extended release 24 hr sacubitril 49 mg-valsartan 51 mg 1 tablet PO BID #60 tablet 01/09/21 07/14/21 Rx tablet dulaglutide 3 mg/0.5 mL 3 mg SUBCUT WEEKLY #6 ml 02/23/21 07/14/21 Rx subcutaneous pen injector metformin 1,000 mg tablet 1,000 mg PO BID #180 tablet 03/09/21 07/14/21 Rx montelukast 10 mg tablet 10 mg PO DAILY #90 tablet 03/09/21 07/14/21 Rx multivitamin 1 tablet PO DAILY 03/20/21 07/14/21 History loratadine 10 mg tablet 10 mg PO DAILY 05/12/21 07/14/21 History spironolactone 25 mg tablet 25 mg PO DAILY 06/03/21 07/14/21 History Allergies Allergy/AdvReac Type Severity Reaction Status Date / Time No Known Allergies Allergy Verified 07/14/21 07:57 Vital Signs Vital Sig
--- NOTE | 2021-07-14 08:29 | WPDANESEPPF ---
Anes - Initial Pre Proc Eval Procedure: Operation Date: 07/14/21 09:00 Proposed Procedures p Screening Colonoscopy - Silvestre Pabon MD Date/Time: 07/14/21 08:29 Surgeon: Silvestre Pabon MD Pre Op Diagnosis: hx of colon polyps, family hx colon ca Patient Data Age: 65 Gender: M Height: 1.83 m Weight: 136.5 kg Last Vital Signs Temp 97.7 F 07/14/21 07:59 Resp 18 07/14/21 07:59 BP 115/62 07/14/21 07:59 Pulse Ox 98 07/14/21 07:59 Allergies Allergy/AdvReac Type Severity Reaction Status Date / Time No Known Allergies Allergy Verified 07/14/21 07:57 Home Medications Medication Instructions Recorded Confirmed Type magnesium 250 mg tablet 250 mg PO DAILY 06/01/19 07/14/21 History omega-3 fatty acids-fish oil 360 1 cap PO DAILY 06/01/19 07/14/21 History mg-1,200 mg capsule blood-glucose meter #1 ea 05/13/20 07/14/21 Rx aspirin 81 mg PO DAILY 10/13/20 07/14/21 History blood sugar diagnostic #100 ea 01/09/21 07/14/21 Rx cholecalciferol (vitamin D3) 50 50 mcg PO DAILY #90 cap 01/09/21 07/14/21 Rx mcg (2,000 unit) capsule hydrochlorothiazide 25 mg tablet 25 mg PO DAILY #90 tablet 01/09/21 07/14/21 Rx lancets 33 gauge #100 ea 01/09/21 07/14/21 Rx metoprolol succinate 50 mg 50 mg PO DAILY #90 tablet 01/09/21 07/14/21 Rx tablet,extended release 24 hr sacubitril 49 mg-valsartan 51 mg 1 tablet PO BID #60 tablet 01/09/21 07/14/21 Rx tablet dulaglutide 3 mg/0.5 mL 3 mg SUBCUT WEEKLY #6 ml 02/23/21 07/14/21 Rx subcutaneous pen injector metformin 1,000 mg tablet 1,000 mg PO BID #180 tablet 03/09/21 07/14/21 Rx montelukast 10 mg tablet 10 mg PO DAILY #90 tablet 03/09/21 07/14/21 Rx multivitamin 1 tablet PO DAILY 03/20/21 07/14/21 History loratadine 10 mg tablet 10 mg PO DAILY 05/12/21 07/14/21 History spironolactone 25 mg tablet 25 mg PO DAILY 06/03/21 07/14/21 History Laboratory Tests 07/14/21 08:15 POC Capillary Glucose 140 mg/dl H mg/dl (65-105) Patient hx anesthesia problems: none Family hx anesthesia problems: none Results Review: All pre-operative results and documents have been reviewed as part of the pre-operative evaluation. [facility] Past Medical History Medical History Arthritis of both wrists Cardiomyopathy Diabetes Dyspnea on exertion Encounter for immunization Fatigue Hypertension Microalbuminuria due to type 2 diabetes mellitus Obesity Seasonal allergies Surgical History Surgical History History of carpal tunnel surgery (~2006) History of hip replacement (~2017) 2018- Right 2011- Left History of knee replacement (~2014) bilateral S/P cardiac cath 09/2020 Normal coronaries. EF 40% Family History Family History Father Diabetes mellitus Hypertension Carcinoma of colon Grandparent Diabetes mellitus Hypertension Mother Family history of glaucoma Hypertension Family history of elevated blood lipids Carcinoma of colon Family history of malignant neoplasm of breast in first degree relative Social History Social History Second hand tobacco smoke exposure: No Alcohol intake: current Alcohol use details: rarely Substance use: never Substance use type: does not use Living arrangements: with family Spiritual care concerns: No Anes - Eval Final PreProcedure Day of Procedure 07/14/21 08:29 Patient weight: morbidly obese Heart: regular rate and rhythm Lungs: clear to auscultation Airway: Mallampati scale class II Neurological: alert and oriented Last oral intake: >/= 8 hours ASA classification: III Emergent: no Anesthetic plan: proceed Anesthesia type and monitoring: general GIVS and standard monitoring Results Review: All pre-operative results and documents have been revi
[2021-07-14 09:22] VITALS: BP 93/60; PULSE 83; RESP 27; O2SAT 98
[2021-07-14 09:32] VITALS: BP 112/76; PULSE 82; RESP 24; O2SAT 98
[2021-07-14 09:42] VITALS: BP 123/76; PULSE 74; RESP 23; O2SAT 100
== END 2021-07-14 09:53 | disposition home or self-care (01) ==
PROVIDERS: PCP Family Medicine; Visit Provider Internal Medicine Gastroenterology
PROC: 0DJD8ZZ Inspection of Lower Intestinal Tract, Via Natural or Artificial Opening Endoscopic (ICD-10-PCS; CPT 45378; principal; 2021-07-14 09:00)
DX: Z12.11 Encounter for screening for malignant neoplasm of colon (principal); Z80.0 Family history of malignant neoplasm of digestive organs; D12.2 Benign neoplasm of ascending colon; K64.8 Other hemorrhoids; K57.30 Diverticulosis of large intestine without perforation or abscess without bleeding; K63.5 Polyp of colon; Z79.82 Long term (current) use of aspirin; Z79.4 Long term (current) use of insulin; I42.9 Cardiomyopathy, unspecified; R53.83 Other fatigue; I10 Essential (primary) hypertension; E11.9 Type 2 diabetes mellitus without complications; E66.01 Morbid (severe) obesity due to excess calories; Z68.41 Body mass index [BMI] 40.0-44.9, adult
CPT/HCPCS: 45385; 82948; 88305; J2001; J2704; J7120

== ENCOUNTER 2021-08-15 08:34 | Outpatient (CLI) | payer MEDICARE, BC, SELFPAY ==
[2021-08-15 09:29] LABS: Hematocrit 41.8 % (42.0-52.0); Hemoglobin 14.3 g/dL (14.0-18.0); Mean Corpuscular HGB Conc 34.2 g/dl (32-36); Mean Corpuscular Hemoglobin 30.3 pg (26-34); Mean Corpuscular Volume 88.6 fl (80-100); Mean Platelet Volume 8.7 fl (7.4-10.4); Platelet Count Result 198 k/mm3 (150-375); Red Blood Count 4.72 M/mm3 (4.6-6.20); Red Cell Distribution Width 15.9 % (11.5-14.5); White Blood Count 6.1 K/mm3 (4.5-10.0)
== END 2021-08-15 08:35 | disposition home or self-care (01) ==
PROVIDERS: PCP Family Medicine; Visit Provider Family Medicine
DX: D64.9 Anemia, unspecified (principal)
CPT/HCPCS: 36415; 85027

== ENCOUNTER 2021-09-01 09:43 | Outpatient (CLI) | payer MEDICARE, BC, SELFPAY ==
[2021-09-01 11:12] LABS: Anion Gap 5 mmol/L (8-16); Blood Urea Nitrogen 18 mg/dL (9-20); Calcium 9.5 mg/dL (8.4-10.2); Carbon Dioxide 28 mmol/L (22-30); Chloride 103 mmol/L (98-107); Estimated Glomerular Filt Rate > 60; Glucose 144 mg/dL (65-110); Magnesium 2.1 mg/dL (1.6-2.3); Potassium 4.9 mmol/L (3.4-5.0); Sodium 136 mmol/L (137-145)
[2021-09-01 11:27] LABS: Free T4 Free Thyroxine 0.86 ng/mL (0.78-2.19)
== END 2021-09-01 09:44 | disposition home or self-care (01) ==
LOC: ANHLAB 09:47
PROVIDERS: PCP Family Medicine; Visit Provider Internal Medicine Cardiovascular Disease
DX: I49.3 Ventricular premature depolarization (principal); E11.59 Type 2 diabetes mellitus with other circulatory complications; I15.2 Hypertension secondary to endocrine disorders
CPT/HCPCS: 36415; 80048; 83735; 84439; 84443

== ENCOUNTER 2021-11-10 09:17 | Outpatient (CLI) | payer MEDICARE, BC, SELFPAY ==
[2021-11-10 10:04] LABS: Hematocrit 42.8 % (42.0-52.0); Hemoglobin 14.3 g/dL (14.0-18.0); Mean Corpuscular HGB Conc 33.4 g/dl (32-36); Mean Corpuscular Volume 92.8 fl (80-100); Mean Platelet Volume 8.1 fl (7.4-10.4); Platelet Count Result 210 k/mm3 (150-375); Red Blood Count 4.61 M/mm3 (4.6-6.20); Red Cell Distribution Width 14.4 % (11.5-14.5); White Blood Count 6.4 K/mm3 (4.5-10.0)
[2021-11-10 10:14] LABS: Alanine Aminotransferase 29 U/L (4-50); Albumin Level 4.1 g/dL (3.5-5.1); Alkaline Phosphatase 81 U/L (38-126); Anion Gap 8 mmol/L (8-16); Aspartate Amino Transferase 26 U/L (17-59); Bilirubin,Total 0.5 mg/dL (0.2-1.3); Blood Urea Nitrogen 18 mg/dL (9-20); Calcium 8.7 mg/dL (8.4-10.2); Carbon Dioxide 27 mmol/L (22-30); Chloride 102 mmol/L (98-107); Cholesterol 146 mg/dL (0-200); Estimated Glomerular Filt Rate > 60; Glucose 143 mg/dL (65-110); HDL Direct 33 mg/dL; Potassium 4.2 mmol/L (3.4-5.0); Sodium 137 mmol/L (137-145); Triglycerides 143 mg/dL (<150)
[2021-11-10 10:25] LABS: LDL Cholesterol Direct 74 mg/dL
[2021-11-10 10:26] LABS: Hemoglobin A1C 6.5 % (<5.7)
== END 2021-11-10 09:18 | disposition home or self-care (01) ==
PROVIDERS: PCP Family Medicine; Visit Provider Physician Assistant
DX: D64.9 Anemia, unspecified (principal); Z13.1 Encounter for screening for diabetes mellitus; I10 Essential (primary) hypertension; E11.9 Type 2 diabetes mellitus without complications; Z13.220 Encounter for screening for lipoid disorders
CPT/HCPCS: 36415; 80053; 80061; 83036; 85027

== ENCOUNTER 2022-05-20 09:00 | Outpatient (CLI) | payer MEDICARE, BC, SELFPAY ==
[2022-05-20 09:33] LABS: Hemoglobin 14.4 g/dL (14.0-18.0); Mean Corpuscular HGB Conc 33.5 g/dl (32-36); Mean Corpuscular Hemoglobin 31.4 pg (26-34); Mean Corpuscular Volume 93.9 fl (80-100); Mean Platelet Volume 8.9 fl (7.4-10.4); Platelet Count Result 226 k/mm3 (150-375); Red Blood Count 4.58 M/mm3 (4.6-6.20); Red Cell Distribution Width 14.6 % (11.5-14.5); White Blood Count 5.8 K/mm3 (4.5-10.0)
[2022-05-20 09:49] LABS: Alanine Aminotransferase 70 U/L (6-50); Albumin Level 4.6 g/dL (3.5-5.1); Alkaline Phosphatase 73 U/L (38-126); Anion Gap 11 mmol/L (8-16); Aspartate Amino Transferase 50 U/L (17-59); Bilirubin,Total 0.6 mg/dL (0.2-1.3); Blood Urea Nitrogen 22 mg/dL (9-20); Carbon Dioxide 26 mmol/L (22-30); Chloride 99 mmol/L (98-107); Cholesterol 152 mg/dL (0-200); Estimated Glomerular Filt Rate > 60; Glucose 257 mg/dL (65-110); HDL Direct 40 mg/dL; Potassium 4.2 mmol/L (3.4-5.0); Sodium 136 mmol/L (137-145); Triglycerides 197 mg/dL (<150)
[2022-05-20 09:57] LABS: Hemoglobin A1C 9.3 % (<5.7)
[2022-05-20 09:58] LABS: LDL Cholesterol Direct 75 mg/dL
[2022-05-20 10:15] LABS: Prostate Specific Antigen 1.2 ng/mL (< OR = 4.0)
== END 2022-05-20 09:01 | disposition home or self-care (01) ==
PROVIDERS: PCP Family Medicine; Visit Provider Family Medicine
DX: Z12.5 Encounter for screening for malignant neoplasm of prostate (principal); E78.2 Mixed hyperlipidemia; E11.9 Type 2 diabetes mellitus without complications; I10 Essential (primary) hypertension; R06.00 Dyspnea, unspecified; R53.83 Other fatigue
CPT/HCPCS: 36415; 80053; 80061; 83036; 84153; 84443; 85027

== ENCOUNTER 2022-08-18 08:03 | Outpatient (CLI) | payer MEDICARE, BC, SELFPAY ==
[2022-08-18 08:49] LABS: Anion Gap 8 mmol/L (8-16); Blood Urea Nitrogen 17 mg/dL (9-20); Calcium 9.4 mg/dL (8.4-10.2); Carbon Dioxide 27 mmol/L (22-30); Chloride 104 mmol/L (98-107); Estimated Glomerular Filt Rate > 60; Glucose 168 mg/dL (65-110); Potassium 3.7 mmol/L (3.4-5.0); Sodium 139 mmol/L (137-145)
[2022-08-18 09:04] LABS: Creatinine Urine 154.1 mg/dL
[2022-08-18 09:10] LABS: MALB Creatinine Ratio 8.2 mg/g (0-30); Microalbumin Urine Random 12.7 mg/L (0-16.7)
[2022-08-18 09:21] LABS: Vitamin D 25 Hydroxy 50.2 ng/mL
[2022-08-20 15:44] LABS: C-Peptide 5.71 ng/mL (0.80-3.85)
== END 2022-08-18 08:04 | disposition home or self-care (01) ==
PROVIDERS: PCP Family Medicine; Visit Provider Nurse Practitioner Family
DX: D64.9 Anemia, unspecified (principal); E11.29 Type 2 diabetes mellitus with other diabetic kidney complication; R80.9 Proteinuria, unspecified; I10 Essential (primary) hypertension; E55.9 Vitamin D deficiency, unspecified
CPT/HCPCS: 36415; 80048; 82043; 82306; 82607; 84681

== ENCOUNTER 2022-11-03 14:30 | Outpatient (RCR) | payer MEDICARE, BC, SELFPAY ==
[2022-08-12 14:31] VITALS: BMI 45.2
[2022-08-12 15:14] VITALS: BMI 45.2
== END 2022-11-08 10:29 | disposition home or self-care (01) ==
LOC: ANHDMC 14:30
PROVIDERS: PCP Family Medicine; Visit Provider Nurse Practitioner Family
DX: E11.9 Type 2 diabetes mellitus without complications (principal); Z71.3 Dietary counseling and surveillance; Z71.89 Other specified counseling
CPT/HCPCS: 97802; G0108; G0109

== ENCOUNTER 2022-11-24 08:24 | Outpatient (CLI) | payer MEDICARE, BC, SELFPAY ==
[2022-11-24 09:20] LABS: Alanine Aminotransferase 46 U/L (6-50); Albumin Level 4.3 g/dL (3.5-5.1); Alkaline Phosphatase 63 U/L (38-126); Anion Gap 6 mmol/L (8-16); Aspartate Amino Transferase 33 U/L (17-59); Bilirubin,Total 0.6 mg/dL (0.2-1.3); Blood Urea Nitrogen 15 mg/dL (9-20); Carbon Dioxide 29 mmol/L (22-30); Chloride 102 mmol/L (98-107); Cholesterol 138 mg/dL (0-200); Estimated Glomerular Filt Rate > 60; Glucose 137 mg/dL (65-110); HDL Direct 38 mg/dL; Hemoglobin A1C 6.8 % (<5.7); Sodium 137 mmol/L (137-145); Triglycerides 151 mg/dL (<150)
[2022-11-24 09:32] LABS: LDL Cholesterol Direct 71 mg/dL
== END 2022-11-24 08:25 | disposition home or self-care (01) ==
PROVIDERS: PCP Family Medicine; Visit Provider Physician Assistant
DX: Z13.1 Encounter for screening for diabetes mellitus (principal); E11.9 Type 2 diabetes mellitus without complications; I10 Essential (primary) hypertension; Z13.220 Encounter for screening for lipoid disorders
CPT/HCPCS: 36415; 80053; 80061; 83036

== ENCOUNTER 2022-11-24 14:30 | Outpatient (RCR) | payer MEDICARE, BC, SELFPAY | END 2023-01-24 11:16 | disposition home or self-care (01) | LOC: ANHDMC 14:30 | PROVIDERS: PCP Family Medicine; Visit Provider Nurse Practitioner Family | DX: E11.9 Type 2 diabetes mellitus without complications (principal); Z71.89 Other specified counseling | CPT/HCPCS: G0109 ==

== ENCOUNTER 2023-07-21 08:23 | Outpatient (CLI) | payer MEDICARE, BC, SELFPAY ==
[2023-07-21 09:15] LABS: Alanine Aminotransferase 34 U/L (6-50); Albumin Level 4.2 g/dL (3.5-5.1); Alkaline Phosphatase 71 U/L (38-126); Anion Gap 8 mmol/L (8-16); Aspartate Amino Transferase 24 U/L (17-59); Bilirubin,Total 0.6 mg/dL (0.2-1.3); Blood Urea Nitrogen 21 mg/dL (9-20); Calcium 9.4 mg/dL (8.4-10.2); Carbon Dioxide 27 mmol/L (22-30); Chloride 103 mmol/L (98-107); Cholesterol 109 mg/dL (0-200); Estimated Glomerular Filt Rate > 60; Glucose 167 mg/dL (65-110); HDL Direct 42 mg/dL; Potassium 4.1 mmol/L (3.4-5.0); Sodium 138 mmol/L (137-145); Triglycerides 156 mg/dL (<150)
[2023-07-21 09:26] LABS: LDL Cholesterol Direct 46 mg/dL
[2023-07-21 09:28] LABS: Hemoglobin A1C 7.5 % (<5.7)
[2023-07-21 09:45] LABS: Prostate Specific Antigen 1.3 ng/mL (< OR = 4.0)
[2023-07-21 09:52] LABS: Creatinine Urine 110.2 mg/dL
[2023-07-21 09:56] LABS: MALB Creatinine Ratio 6.8 mg/g (0-30); Microalbumin Urine Random 7.5 mg/L (0-16.7)
== END 2023-07-21 08:24 | disposition home or self-care (01) ==
PROVIDERS: PCP Family Medicine; Visit Provider Physician Assistant
DX: Z12.5 Encounter for screening for malignant neoplasm of prostate (principal); E78.2 Mixed hyperlipidemia; E11.9 Type 2 diabetes mellitus without complications
CPT/HCPCS: 36415; 80053; 80061; 82043; 83036; 84153; G0103

== ENCOUNTER 2023-11-26 07:51 | Outpatient (CLI) | payer MEDICARE, BC, SELFPAY ==
[2023-11-26 08:53] LABS: Anion Gap 9 mmol/L (4-12); Blood Urea Nitrogen 27 mg/dL (9-20); Calcium 9.8 mg/dL (8.4-10.2); Carbon Dioxide 25 mmol/L (22-30); Chloride 104 mmol/L (98-107); Estimated Glomerular Filt Rate > 60; Glucose 186 mg/dL (65-110); Potassium 3.8 mmol/L (3.4-5.0); Sodium 138 mmol/L (137-145)
== END 2023-11-26 07:52 | disposition home or self-care (01) ==
LOC: ANHLAB 07:54
PROVIDERS: PCP Family Medicine; Visit Provider Internal Medicine Endocrinology, Diabetes & Metabolism
DX: E11.65 Type 2 diabetes mellitus with hyperglycemia (principal)
CPT/HCPCS: 36415; 80048; 82607

== ENCOUNTER 2025-02-11 09:21 | Outpatient (CLI) | payer MEDICARE, BC, SELFPAY ==
--- OUTSIDE RECORDS SUMMARY | 2025-02-11 09:27 | XMS_ITS | Referral Summary ---
Author Organization [facility] Address [address] [place] [id number] Care Team Providers Care Pantomimist Name Role Phone Lidya Leger MD Primary Care Provider Lidya Leger MD Unavailable [phone] Allergies No known active allergies Medications albuterol HFA (PROVENTIL HFA,VENTOLIN HFA,PROAIR HFA) 90 mcg/actuation inhaler USE 1 PUFF EVERY 4 HOURS NEEDED FOR SHORTNESS OF BREATH/WHEEZI NG 0 Active OneTouch Verio test strips strip USE TO TEST BLOOD SUGARS ONCE DAILY 0 Active OneTouch Verio Flex meter misc USE TO TEST BLOOD SUGARS DAILY DIRECTED 0 Active OneTouch Delica Plus Lancet 33 gauge misc USE DIRECTED TO TEST BLOOD SUGARS ONCE DAILY 0 Active metFORMIN (GLUCOPHAGE) 1,000 mg tablet Take 1 tablet (1,000 mg total) by mouth 2 (two) times a day 0 Active montelukast (SINGULAIR) 10 mg tablet Take 1 tablet (10 mg total) by mouth nightly 0 Active Lactobac no.41/Bifidobact no.7 (PROBIOTIC-10 ORAL) Take by mouth Active cholecalciferol (VITAMIN D-3) 2000 unit capsule Take 1 capsule (2,000 Units total) by mouth daily Active magnesium oxide (MAG-OX) 250 mg (150.8 mg elemental) tabletIndications: hypomagnesemia 1 tablet (250 mg total) daily Active loratadine (CLARITIN) 10 mg tablet Take 1 tablet (10 mg total) by mouth daily Active acetaminophen (TYLENOL) 325 mg tablet Take 2 tablets (650 mg total) by mouth as needed for pain Active multivitamin capsule Take 1 capsule by mouth daily Active aspirin 81 mg enteric coated tabletIndications: Abnormal stress test Take 1 tablet (81 mg total) by mouth daily 30 tablet 11 1 Active nitroglycerin (NITROSTAT) 0.[address] 1 tablet (0.4 mg total) under the tongue every 5 (five) minutes as needed for chest pain May repeat dose q 5 min, up to 3 doses total 25 tablet 11 1 Active omega 1-tou-eaa-fish oil 1,200 (144-216) mg capsule Take by mouth Active Jardiance 25 mg tablet 3 Active Mounjaro 5 mg/0.5 mL pen injector 4 Active rosuvastatin (CRESTOR) 5 mg tablet 4 Active TRESIBA 200 unit/mL (3 mL) pen for injection 4 Active spironolactone (ALDACTONE) 25 mg tabletIndications: Nonischemic cardiomyopathy (HCC) TAKE 1 TABLET BY MOUTH DAILY 90 tablet 3 4 Active hydroCHLOROthiazid e (HYDRODIURIL) 25 mg tabletIndications: Hypertension associated with diabetes (HCC) TAKE 1 TABLET BY MOUTH DAILY 90 tablet 3 4 Active Entresto 49-51 mg tablet TAKE 1 TABLET BY MOUTH TWICE DAILY 180 tablet 3 5 Active cyanocobalamin, vitamin B-12, (VITAMIN B-12 ORAL) Take by mouth Active metoprolol XL (TOPROL-XL) 100 mg 24 hr tabletIndications: PVC (premature ventricular contraction) TAKE 1 TABLET BY MOUTH DAILY 90 tablet 5 Active Active Problems Problem Noted Date Diagnosed Date Lipid screening 02/29/2024 Morbid obesity 05/21/2022 PVC (premature ventricular contraction) 09/01/19 CAYLA (obstructive sleep apnea) 02/06/2021 Chronic systolic heart failure 02/06/2021 PND (paroxysmal nocturnal dyspnea) 10/20/2020 Hypersomnolence 10/20/2020 Pre-op evaluation 10/20/2020 Witnessed episode of apnea 10/06/2020 Morbid obesity with BMI of 40.0-44.9, adult 03/0 03/2021 History of COVID-19 10/06/2020 Mitral valve prolapse 10/06/2020 Hypertension associated with diabetes 10/06/2020 Nonischemic cardiomyopathy 10/06/2020 Abnormal stress test 10/06/2020 Chest pain 10/06/2020 CORTEZ (dyspnea on exertion) 10/06/2020 Wrist arthritis 08/20/2020 Right carpal tunnel syndrome 08/20/2020 Social History Tobacco Use Types Packs/Day Years Used Date Smoking Tobacco: Never Smokeless Tobacco: Never Tobacco Cessation:Counseling Given: Not Answered AUDIT-C Answer Date Recorded Q1: How often do you have a drink containing alc ohol? Monthly or less 10/06/2020 Q2: How many drinks containi ng alcohol do you have on a typical day when you are drinking? 1 or 2 10/06/2020 Q3: How often do you have si x or more drinks on one occasion? Never 10/06/2020 Sex and Gender Information Value Date Recorded Sex Assigned at Not on file Legal Sex Male 7:08 PM SENIOR FRONT END ENGINEER Gender Identity Not on file Sexual Orientation Not on file Last Filed Vital Signs Vital Sign Reading Time Taken Comments Blood Pressure 108/68 09/17/2024 11:04 AM SENIOR FRONT END ENGINEER Pulse 72 09/17/2024 11:04 AM SENIOR FRONT END ENGINEER Temperature 36.6 C (97.8 F) 10/07/2020 11:18 AM SENIOR FRONT END ENGINEER Respiratory Rate 16 05/19/2021 9:23 AM CDT Oxygen Saturation 96% 09/17/2024 11:04 AM SENIOR FRONT END ENGINEER Inhaled Oxygen Concentration - - Weight 149.2 kg (329 lb) 09/17/2024 11:04 AM SENIOR FRONT END ENGINEER Height 182.9 cm (6') 09/17/2024 11:04 AM SENIOR FRONT END ENGINEER Body Mass Index 44.62 09/17/2024 11:04 AM SENIOR FRONT END ENGINEER Plan of Treatment Not on file Procedures Procedure Name Priority Date/Time Associated Diagnosis Comments POCT LIPID PANEL Routine 02/29/2024 9:17 AM CDT Lipid screening BASIC METABOLIC PANEL Routine 09/01/2021 PVC (premature ventricular contraction) COLONOSCOPY 06/10/2015 12:00 AM SENIOR FRONT END ENGINEER from Last 3 Months or Most Recently Relevant to Health Maintenance Results * POCT lipid panel (02/29/2024 9:17 AM CDT) Cholesterol, POC 103 mg/dL HDL, POC 36 mg/dL Triglycerides, POC 196 mg/dL LDL Cholesterol POC 28 mg/dL Chol/HDL Ratio, POC 0.8 Non-HDL Cholesterol, POC 67 mg/dL Cholesterol Total, POC 103 mg/dL Capillary blood 02/29/2024 9 :17 AM CDT Chyna Hopkins NP POINT OF CARE TEST ORDERABLE S Final Result * (ABNORMAL) Basic metabolic panel (09/01/2021) SCRIBED Sodium 136(A) 137 - 145 mmol/L EXTERNAL LAB SCRIBED Potassium 4.9 3.4 - 5.0 mmol/L EXTERNAL LAB SCRIBED Chloride 103 98 - 107 mmol/L EXTERNAL LAB SCRIBED Carbon Dioxide 28 22 - 30 mmol/L EXTERNAL LAB SCRIBED Anion Gap 5(A) 8 - 16 mmol/L EXTERNAL LAB SCRIBED Urea Nitrogen (BUN) 18 9 - 20 mg/dl EXTERNAL LAB SCRIBED Creatinine 0.90 0.7 - 1.3 mg/dl EXTERNAL LAB SCRIBED Glucose 144(A) 65 - 110 mg/dl EXTERNAL LAB SCRIBED Calcium 9.5 8.4 - 10.2 mg/dl EXTERNAL LAB SCRIBED eGFR in >60 > or = 60 EXTERNAL LAB SCRIBED eGFR in NonAfrican Indonesian >60 > or = 60 EXTERNAL LAB Blood specimen (specimen) 09/01/2021 Seamus Munson MD LAB BLOOD ORDERABLES Marisa newell Result EXTERNAL LAB * COLONOSCOPY (06/10/2015 12:00 AM SENIOR FRONT END ENGINEER) Anatomical Region Laterality Modality Other Narrative 06/10/2015 12:00 AM SENIOR FRONT END ENGINEER Ordered by an unspecified provider. Procedure Note Provider, MD Vijay - 06/10/2015 12:00 AM CST PROCEDURE REPORT Patient: OLEGARIO GARCIA. Account: [id number] Room No: : 1955 Patient Type: SDS Attend.: Chi Delgado M.D. Admit Date: 06/10/2015 Dict.: Chi Delgado M.D. Disch. Date: 06/10/2015 NAME OF PROCEDURE: Colonoscopy with polypectomy. HISTORY OF PRESENT ILLNESS 59-year-old male both parents had cancer of the colon. PHYSICAL EXAMINATION Well developed male. Lungs are clear. Cardiovascular exam isunremarkable. PROCEDURE Colonoscopy with polypectomy was performed with the Olympus videoendoscope. The patient was premedicated by anesthesia. On digital exam, he has gotgrade II hemorrhoids. We inserted the endoscope and advanced it. We seediverticula beginning in the sigmoid. In the descending, there is a 5 mm polyp thatwe biopsied and coagulated. From there, we advanced it to the cecum. Theright colon needed quite a bit of irrigation and suction. We could find noevidence of neoplastic change. We withdrew the endoscope slowly and except forthe diverticular disease that affected the entire colon, both right and leftsides, no other abnormalities were noted. We brought the scope back, retroflexedin the rectum and examined the hemorrhoidal tissue internally and then straightened the scope and removed it. The patient tolerated the procedure without difficulty. POSTOPERATIVE DIAGNOSES 1. A 5 mm poly removed with hot biopsy forceps in the descending. 2. Diffuse diverticulosis. 3. Hemorrhoidal disease. PLAN Surveillances in five years. Electronically Authenticated and Edited by: Chi Delgado MD On 06/12/2015 07:38 AM SENIOR FRONT END ENGINEER Chi Delgado M.D. DR/rachel TD: 06/11/2015 07:59 CC: Dr. Mcallister us Historical Provider ENDOSCOPY PROCEDURES Marisa l Result from Last 3 Months or Most Recently Relevant to Health Maintenance Insurance [facility] Address: [address] [address] [place] [address] [employer] ACCESS OOS BLUE ACCESS OOS MEDICARE [employer] OOS Care Teams Pantomimist Relationship Specialty Start Date End Date Lidya Leger MD PCP - General 08/20/20 Lidya Leger MD Family Medicine 08/20/20
--- OUTSIDE RECORDS SUMMARY | 2025-02-11 09:27 | XMS_ITS | Clinical Summary ---
Author Organization [facility] [place] [facility] Address [address] [place] [phone] Care Team Providers Care Forest Patrolman Name Role Phone Lidya Leger MD Primary Care Provider [phone] Lidya Leger MD Unavailable [phone] Allergies No known active allergies Medications albuterol [...] total 25 tablet 11 1 Active omega 1-hin-qqg-fish oil 1,200 (144-216) mg capsule Take by [...] arthritis 08/20/2020 Right carpal tunnel syndrome 08/20/2020 Surgical History Surgery Date Site/Laterality Comments HIP SURGERY Bilateral KNEE SURGERY Bilateral CARPAL TUNNEL RELEASE Medical History Medical History Date Comments Diabetes mellitus (HCC) Hypertension Obesity Sinusitis Allergic rhinitis Mitral valve prolapse History of COVID-19 Arthritis Family History Medical History Relation Name Comments Colon cancer Father Breast cancer Mother Colon cancer Mother Hyperlipidemia Mother Hypertension Mother Relation Name Status Comments Father (Age 65) Mother Alive Sister Alive Social History Tobacco Use Types Packs/Day Years [...] on file Legal Sex Male 7:08 PM AIR TRAFFIC INSTRUCTOR Gender Identity Not on file Sexual Orientation Not on file Obstetrics History Last Filed Vital Signs Vital Sign Reading Time Taken Comments Blood Pressure 108/68 09/17/2024 11:04 AM AIR TRAFFIC INSTRUCTOR Pulse 72 09/17/2024 11:04 AM AIR TRAFFIC INSTRUCTOR Temperature 36.6 C (97.8 F) 10/07/2020 11:18 AM AIR TRAFFIC INSTRUCTOR Respiratory Rate 16 05/19/2021 9:23 AM CDT Oxygen Saturation 96% 09/17/2024 11:04 AM AIR TRAFFIC INSTRUCTOR Inhaled Oxygen Concentration - - Weight 149.2 kg (329 lb) 09/17/2024 11:04 AM AIR TRAFFIC INSTRUCTOR Height 182.9 cm (6') 09/17/2024 11:04 AM AIR TRAFFIC INSTRUCTOR Body Mass Index 44.62 09/17/2024 11:04 AM AIR TRAFFIC INSTRUCTOR Plan of Treatment Health Maintenance Due Date Last Done Comments Albumin Creatinine Ratio, Urine 1955 Depression Screening 1955 Fall Risk Assessment 1955 Hemoglobin A1C 1955 Hepatitis C Screening 1955 Prostate Cancer Screening-PSA 1955 Dilated Eye Exam 1955 Foot Exam 1955 Hepatitis B Screening 10/01/1973 Zoster Vaccine (1 of 2) 10/01/2005 DTaP/Tdap/Td Vaccine (1 - Tdap) 08/02/2013 4 Pneumococcal vaccine 65+ (2 of 2 - PCV) 05/01/2015 05/01/2014 Well Visit 65+ 10/01/2020 eGFR 09/01/2022 09/01/2021 Lipid Panel 02/28/2025 02/29/2024, 11/29, 09/01/2021, Additional history exists Influenza Vaccine (Season Ended) 2025 04/25/2020, 05/13/2019, 05/30/2017, Additional history exists Colon Cancer Screening-Colonoscopy 06/10/20252014 Procedures Procedure Name Priority Date/Time Associated Diagnosis Comments POCT LIPID PANEL Routine 02/29/2024 9:17 AM CDT Lipid screening BASIC METABOLIC PANEL Routine 09/01/2021 PVC (premature ventricular contraction) COLONOSCOPY 06/10/2015 12:00 AM AIR TRAFFIC INSTRUCTOR from Last 3 Months or Most Recently Relevant to Health Maintenance Results * POCT lipid panel (02/29/2024 9:17 AM CDT) Cholesterol, POC 103 mg/dL HDL, POC 36 mg/dL Triglycerides, POC 196 mg/dL LDL Cholesterol POC 28 mg/dL Chol/HDL Ratio, POC 0.8 Non-HDL Cholesterol, POC 67 mg/dL Cholesterol Total, POC 103 mg/dL Capillary blood 02/29/2024 9 :17 AM CDT us Chyna Hopkins NP POINT OF CARE TEST [...] 60 EXTERNAL LAB SCRIBED eGFR in NonAfrican Serbian >60 > or = 60 EXTERNAL LAB Blood specimen (specimen) 09/01/2021 us Seamus Munson MD LAB BLOOD ORDERABLES Marisa l Result EXTERNAL LAB * COLONOSCOPY (06/10/2015 12:00 AM AIR TRAFFIC INSTRUCTOR) Anatomical Region Laterality Modality Other Narrative 06/10/2015 12:00 AM AIR TRAFFIC INSTRUCTOR Ordered by an unspecified provider. Procedure Note Provider, MD Vijay - 06/10/2015 12:00 AM CST PROCEDURE REPORT Patient: OLEGARIO GARCIA Account: [id number] Room No: : 1955 Patient Type: [facility] Attend.: Chi Delgado M.D. Admit Date: 06/10/2015 [...] Chi Delgado MD On 06/12/2015 07:38 AM AIR TRAFFIC INSTRUCTOR Jericho Sanchez TD: 06/11/2015 07:59 CC: Dr. Mcallister Historical Provider ENDOSCOPY PROCEDURES Marisa l Result from Last 3 Months or Most Recently Relevant to Health Maintenance Insurance MEDICARE [employer] OOS MEDICARE [employer] OOS MEDICARE [employer] OOS Care Teams Forest Patrolman Relationship Specialty Start Date End Date Lidya Leger MD PCP - General 08/20/20 Lidya Leger MD Family Medicine 08/20/20
--- OUTSIDE RECORDS SUMMARY | 2025-02-11 09:27 | XMS_ITS | Clinical Summary ---
Author Organization [facility] Address [address] [facility] [address] [place] [address] Phone Care Team Providers Care Solar[employer] Sales Name Role Phone Unavailable Primary Care Provider Unavailabl e Allergies No known active allergies Medications fexofenadine (KATIE) 180 MG TabletIndications:S easonal allergic rhinitis due to other allergic trigger, unspecified chronicity Take 180 mg by mouth daily. Active metoprolol Succinate (TOPROL-XL) 25 MG TABLET SR 24 HRIndications:Essen tial hypertension Take 1 Tab by mouth daily. 90 Tab 7 Active metFORMIN (GLUCOPHAGE) 1000 MG Tablet Take 1 Tab by mouth 2 times daily (with meals). 180 Tab 1 8 Active simvastatin (ZOCOR) 5 MG TabletIndications:H yperlipidemia, unspecified hyperlipidemia type Take 1 Tab by mouth every evening. 90 Tab 1 8 Active valsartan-hydroCHLO ROthiazide (DIOVAN-HCT) 320-25 MG Tablet TAKE 1 TAB BY MOUTH DAILY. 90 Tab 2 8 Active amLODIPine (NORVASC) 10 MG Tablet TAKE 1 TABLET BY MOUTH EVERY DAY 90 Tab 2 8 Active Active Problems Problem Noted Date Diagnosed Date Seasonal allergic rhinitis 06/30/2017 Osteoarthritis of right hip 06/30/2017 Obesity, Class III, BMI 40-49.9 (morbid obesity) 06/22/2016 HTN (hypertension) LVH (left ventricular hypertrophy) Diastolic dysfunction Diabetes mellitus OA (osteoarthritis) of knee Immunizations Immunization Administration Dates Next Due Influenza Vaccine greater than 3 yrs 05/30/2017, 05/30/2016,05/01/2014 Influenza Vaccine, Quadrivalent, PF 06/19/2015 PUR FLU 3+ YRS PRES FREE QUAD IM 06/19/2015 Pneumococcal Vaccine Adult - 23 Valent 4 TD VACCINE 08/01/2013 Family History Medical History Relation Name Comments Colon Cancer Father Colon Cancer Mother Hypertension Mother Diabetes Paternal Grandmother Relation Name Status Comments Father Mother Paternal Grandmother Social History Tobacco Use Types Packs/Day Years Used Date Smoking Tobacco: Never Smokeless Tobacco: Never Tobacco Cessation:Counseling Given: No Alcohol Use Standard Drinks/Week Comments Yes 2 (1 standard drink = 0.6 oz pur e alcohol) Sexually Active Control Partners Comments Yes Female Sex and Gender Information Value Date Recorded Sex Assigned at Not on file Legal Sex Male 9:17 PM CDT Gender Identity Not on file Sexual Orientation Not on file Last Filed Vital Signs Vital Sign Reading Time Taken Comments Blood Pressure 138/68 02/21/2018 3:02 PM CDT Pulse 90 02/21/2018 3:02 PM CDT Temperature 36.7 C (98.1 F) 02/21/2018 3:02 PM CDT Respiratory Rate 18 02/21/2018 3:02 PM CDT Oxygen Saturation 97% 02/21/2018 3:02 PM CDT Inhaled Oxygen Concentration - - Weight 146.6 kg (323 lb 3.2 oz) 02/21/2018 3:02 PM CDT Height 182.9 cm (6') 02/21/2018 3:02 PM CDT Body Mass Index 43.83 02/21/2018 3:02 PM CDT Plan of Treatment Health Maintenance Due Date Last Done Comments Diabetes: Foot Exam 1955 Hepatitis C Virus (HCV) Screening 1955 TdaP Immunization 1955 Cologuard 10/01/2000 Immunochemical Fecal Occult Blood 10/01/2000 Zoster Immunization (1 of 2) 10/01/2005 Pneumococcal Immunization (50+ years) (2 of 2 - PCV) 05/01/2015 05/01/2014 Diabetes: Hemoglobin A1c 08/24/2018 018, 05/21/2017, 12/25/2016, Additional history exists Diabetes: Nephropathy Screening 02/04/2019 02/04/2018, 05/21/2017, 12/25/2016, Additional history exists Diabetes: Eye Exam 08/17/2019 08/17/2018, 1 09/27/2016, 07/29/2016, Additional history exists Colonoscopy 03/30/2022 03/30/2012 Colorectal Cancer Screening 03/30/2022 SARS-COV-2 Immunization ( season) 2024 06/22/2021, 10/21/2020, 09/30/2020 Influenza Immunization (#1) 04/01/202505/03, 05/30/2016, 06/19/2015, Additional history exists Respiratory Syncytial Virus (RSV) Immunization (Adult) (1 - 1-dose 75+ series) 10/01/2030 Pneumococcal Immunization Combined Discontinued 05/01/2014 PSA Discussion Discontinued 02/04/2018, 04/2016, 06/09/2015 Hepatitis B Immunization Aged Out No longer eligible based on patient's age to complete this topic Human Papillomavirus (HPV) Immunization Aged Out No longer eligible based on patient's age to complete this topic Meningococcal Immunization (ACWY) Aged Out No longer eligible based on patient's age to complete this topic Rotavirus Immunization Aged Out No lo nger eligible based on patient's age to complete this topic Procedures Procedure Name Priority Date/Time Associated Diagnosis Comments DILATED EYE EXAM Routine 08/17/2018 POCT GLYCOSYLATED HEMOGLOBIN Routine 02/21/2018 3:59 PM CDT Type 2 diabetes mellitus without complication, without long-term current use of insulin (HCC) CMP (COMPREHENSIVE METABOLIC PANEL) Routine 02/04/2018 Type 2 diabetes mellitus without complication, without long-term current use of insulin (HCC) PSA SCREEN Routine 02/04/2018 Type 2 diabetes mellitus without complication, without long-term current use of insulin (HCC) COLONOSCOPY Routine 03/30/2012 from Last 3 Months or Most Recently Relevant to Health Maintenance Results * DILATED EYE EXAM (08/17/2018) us Not On File Provider PROCEDURE/MINOR SURGICAL OR DERABLES Final Result * (ABNORMAL) POCT GLYCOSYLATED HEMOGLOBIN (02/21/2018 3:59 PM CDT) HGB-A1C 6.3(A) 4 - 6 02/21/2018 3:59 PM CDT us Sagrario Borjas MD POINT OF CARE TESTING (MANUA L) Final Result * PSA SCREEN (02/04/2018) PSA (PROSTATE SPECIFIC ANTIGEN) 3.55 ng/mL Blood specimen (specimen) 02/04/2018 us Sagrario Borjas MD CHEMISTRY ORDERABLES Final R esult * CMP (COMPREHENSIVE METABOLIC PANEL) (02/04/2018) Blood specimen (specimen) us Sagrario Borjas MD CHEMISTRY ORDERABLES Final R esult * HM COLONOSCOPY (03/30/2012) Result Masood Borjas MD PROCEDURE/MINOR SURGICAL ORD ERABLES Final Result from Last 3 Months or Most Recently Relevant to Health Maintenance Insurance [facility]
[2025-02-11 10:02] LABS: Hematocrit 45.2 % (42.0-52.0); Hemoglobin 14.8 g/dL (14.0-18.0); Immature Granulocyte Percent A 0.3 % (0-0.5); Lymphocytes Absolute Auto 1.55 K/mm3 (0.9-3.2); Mean Corpuscular HGB Conc 32.7 g/dl (32-36); Mean Corpuscular Hemoglobin 30.1 pg (26-34); Mean Corpuscular Volume 91.9 fl (80-100); Nucleated Red Blood Cells Absolute Auto 0.000 K/mm3 (0.0-0.012); Nucleated Red Blood Cells Perc 0.0 % (0.0-0.2); Platelet Count Result 195 k/mm3 (150-375); Red Blood Count 4.92 M/mm3 (4.6-6.20); White Blood Count 5.9 K/mm3 (4.5-10.0)
[2025-02-11 10:53] LABS: MALB Creatinine Ratio 8.2 mg/g (0-30)
[2025-02-11 11:29] LABS: Free T4 Free Thyroxine 0.99 ng/dL (0.78-2.19)
[2025-02-11 11:31] LABS: Alanine Aminotransferase 40 U/L (6-50); Albumin Level 4.3 g/dL (3.5-5.1); Alkaline Phosphatase 63 U/L (38-126); Anion Gap 12 mmol/L (4-12); Aspartate Amino Transferase 31 U/L (17-59); Bilirubin,Total 0.3 mg/dL (0.2-1.3); Blood Urea Nitrogen 21 mg/dL (9-20); Calcium 9.5 mg/dL (8.4-10.2); Carbon Dioxide 24 mmol/L (22-30); Chloride 103 mmol/L (98-107); Cholesterol 99 mg/dL (0-200); Estimated Glomerular Filt Rate > 60; Glucose 166 mg/dL (65-110); HDL Direct 40 mg/dL; Potassium 4.0 mmol/L (3.4-5.0); Sodium 139 mmol/L (137-145); Total Protein 7.6 g/dL (6.3-8.2); Triglycerides 179 mg/dL (<150)
[2025-02-11 12:07] LABS: Thyroid Stimulating Hormone 1.540 uIU/mL (0.465-4.680)
[2025-02-11 12:26] LABS: Vitamin B12 500.0 pg/mL (239-931)
[2025-02-11 12:28] LABS: Prostate Specific Antigen 1.2 ng/mL (< OR = 4.0)
== END 2025-02-11 09:22 | disposition home or self-care (01) ==
PROVIDERS: PCP Family Medicine; Referring Provider Family Medicine; Visit Provider Nurse Practitioner Family
DX: R80.9 Proteinuria, unspecified (principal); I10 Essential (primary) hypertension; E11.29 Type 2 diabetes mellitus with other diabetic kidney complication; E78.5 Hyperlipidemia, unspecified; Z71.3 Dietary counseling and surveillance; Z12.5 Encounter for screening for malignant neoplasm of prostate
CPT/HCPCS: 36415; 80053; 80061; 82043; 82607; 84153; 84439; 84443; 85025; G0103

== ENCOUNTER 2025-04-17 09:23 | Outpatient (CLI) | payer MEDICARE, BC, SELFPAY ==
--- NOTE | ~2025-04-17 | CT_ITS ---
EXAMINATION:CT diagnostic chest w con DATE: 04/17/2025 09:47 INDICATION: Aortic aneurysm. TECHNIQUE: Computed tomography (CT) of the chest was performed with 75 mL Omnipaque 350 intravenous contrast. Automated exposure control and iterative reconstruction technique were employed. The dose-length product (DLP) was 931.92 mGy-cm. COMPARISON: None. FINDINGS: There are blebs at right lung apex. There is minimal atelectasis bilaterally. A calcified right lung nodule and calcified right hilar lymph nodes are consistent with old granulomatous disease. No pleural effusion. The heart size is normal. No pericardial effusion. There are coronary artery ca lcifications. The aorta measures 4.5 cm at the sinuses of Valsalva, 3.8 cm at the sinotubular junction, 4.2 cm in the mid ascending aorta, 3.3 cm at the aortic isthmus, and 3.1 cm in the mid descending aorta. There is diffuse hepatic steatosis. There is bilateral gynecomastia, right worse than left. There are bridging endplate osteophytes at multiple levels in the spine, consistent with diffuse idiopathic skeletal hyperostosis (DISH). There is severe cervical spondylosis. IMPRESSION: 1. Ectasia of ascending aorta measuring 4.5 cm at the sinuses of Valsalva. Reviewed, dictated and finalized at location E.
[2025-04-17 09:41] LABS: Estimated Glomerular Filt Rate > 60
--- OUTSIDE RECORDS SUMMARY | 2025-04-17 10:12 | XMS_ITS | Clinical Summary ---
Author Organization [facility] Address [address] [place] [id number] Care Team Providers Care Pleating Supervisor Name Role Phone Lidya Leger MD Primary Care Provider [phone] Lidya Leger MD Unavailable [phone] Allergies No known active allergies Medications albuterol HFA (PROVENTIL HFA,VENTOLIN HFA,PROAIR HFA) 90 mcg/actuation inhaler USE 1 PUFF EVERY 4 HOURS NEEDED FOR SHORTNESS OF BREATH/WHEEZ ING 07/17/20 Active OneTouch Verio test strips strip USE TO TEST BLOOD SUGARS ONCE DAILY 07/04/20 Active OneTouch Verio Flex meter misc USE TO TEST BLOOD SUGARS DAILY DIRECTED 05/13/20 Active OneTouch Delica Plus Lancet 33 gauge misc USE DIRECTED TO TEST BLOOD SUGARS ONCE DAILY 05/13/20 Active metFORMIN (GLUCOPHAGE) 1,000 mg tablet Take 1 tablet (1,000 mg total) by mouth 2 (two) times a day 07/26/20 Active montelukast (SINGULAIR) 10 mg tablet Take 1 tablet (10 mg total) by mouth nightly 05/23/20 Active Lactobac no.41/Bifidobact no.7 (PROBIOTIC-10 ORAL) Take by mouth Active cholecalciferol (VITAMIN D-3) 2000 unit capsule Take 1 capsule (2,000 Units total) by mouth daily Active magnesium oxide (MAG-OX) 250 mg (150.8 mg elemental) tabletIndications :hypomagnesemia 1 tablet (250 mg total) daily Active loratadine (CLARITIN) 10 mg tablet Take 1 tablet (10 mg total) by mouth daily Active acetaminophen (TYLENOL) 325 mg tablet Take 2 tablets (650 mg total) by mouth as needed for pain Active multivitamin capsule Take 1 capsule by mouth daily Active aspirin 81 mg enteric coated tabletIndications :Abnormal stress test Take 1 tablet (81 mg total) by mouth daily 30 tablet 11 10/07/19 21 Active nitroglycerin (NITROSTAT) 0.[address] 1 tablet (0.4 mg total) under the tongue every 5 (five) minutes as needed for chest pain May repeat dose q 5 min, up to 3 doses total 25 tablet 11 10/07/19 21 Active omega 2-pzp-sji-fish oil 1,200 (144-216) mg capsule Take by mouth Active Jardiance 25 mg tablet 11/02/19 23 Active Mounjaro 5 mg/0.5 mL pen injector 01/27/20 24 Active rosuvastatin (CRESTOR) 5 mg tablet 02/29/20 24 Active TRESIBA 200 unit/mL (3 mL) pen for injection 11/29/19 24 Active hydroCHLOROthiazi de (HYDRODIURIL) 25 mg tabletIndications :Hypertension associated with diabetes (HCC) TAKE 1 TABLET BY MOUTH DAILY 90 tablet 3 06/15/20 24 Active Entresto 49-51 mg tablet TAKE 1 TABLET BY MOUTH TWICE DAILY 180 tablet 3 08/20/19 25 Active cyanocobalamin, vitamin B-12, (VITAMIN B-12 ORAL) Take by mouth Active metoprolol XL (TOPROL-XL) 100 mg 24 hr tabletIndications :PVC (premature ventricular contraction) TAKE 1 TABLET BY MOUTH DAILY 90 tablet 3 03/12/20 25 Active furosemide (LASIX) 20 mg tabletIndications :Chronic systolic heart failure (HCC) Take 1 tablet (20 mg total) by mouth daily as needed (swelling) 30 tablet 1 03/26/20 25 Active spironolactone (ALDACTONE) 25 mg tabletIndications :Nonischemic cardiomyopathy (HCC) TAKE 1 TABLET BY MOUTH DAILY 90 tablet 3 04/02/20 25 Active spironolactone (ALDACTONE) 25 mg tabletIndications :Nonischemic cardiomyopathy (HCC) TAKE 1 TABLET BY MOUTH DAILY 90 tablet 3 05/28/20 24 025 Discontinued Active Problems Problem Noted Date Diagnosed Date Lipid screening 02/29/2024 Morbid obesity 05/21/2022 PVC (premature ventricular contraction) 09/01/19 CAYLA (obstructive sleep apnea) 02/06/2021 Chronic systolic heart failure 02/06/2021 PND (paroxysmal nocturnal dyspnea) 10/20/2020 Hypersomnolence 10/20/2020 Pre-op evaluation 10/20/2020 Witnessed episode of apnea 10/06/2020 Morbid obesity with BMI of 40.0-44.9, adult 03/2021 History of COVID-19 10/06/2020 Mitral valve prolapse 10/06/2020 Hypertension associated with diabetes 10/06/2020 Nonischemic cardiomyopathy 10/06/2020 Abnormal stress test 10/06/2020 Chest pain 10/06/2020 CORTEZ (dyspnea on exertion) 10/06/2020 Wrist arthritis 08/20/2020 Right carpal tunnel syndrome 08/20/2020 Encounters Date Type Department Care Team Description 03/29/2025 Telephone [facility] [address] [facility] [address] [place] [phone] Karan Govea MD 03/29/2025 Results Follow-Up [facility] [address] [facility] [address] [place] [address] Karan Govea MD Transthoracic Echo (TTE) Complete W Doppler/CF 03/26/2025 11:15 AM CDT Ancillary Procedure [facility] at [address] [place] [address] Chronic systolic heart failure (HCC); Nonischemic cardiomyopathy (HCC) 03/26/2025 9:30 AM CDT Office Visit [facility] [address] [facility] [address] [place] [address] Karan Govea MD Chronic systolic heart failure (HCC) (Primary Dx); Hypertension associated with diabetes (HCC); Nonischemic cardiomyopathy (HCC); Morbid obesity with BMI of 40.0-44.9, adult (HCC); CAYLA (obstructive sleep apnea) from Last 3 Months Surgical History Surgery Date Site/Laterality Comments HIP [...] on file Legal Sex Male 7:08 PM RACK CARRIER Gender Identity Not on file Sexual Orientation Not on file Obstetrics History Last Filed Vital Signs Vital Sign Reading Time Taken Comments Blood Pressure 110/64 03/26/2025 9:53 AM CDT Pulse 70 03/26/2025 9:53 AM CDT Temperature 36.6 C (97.8 F) 10/07/2020 11:18 AM RACK CARRIER Respiratory Rate 16 05/19/2021 9:23 AM CDT Oxygen Saturation 96% 03/26/2025 9:53 AM CDT Inhaled Oxygen Concentration - - Weight 142 kg (313 lb) 03/26/2025 9:53 AM CDT Height 182.9 cm (6') 03/26/2025 9:53 AM CDT Body Mass Index 42.45 03/26/2025 9:53 AM CDT Plan of Treatment Health Maintenance Due Date Last Done Comments Albumin Creatinine Ratio, Urine 1955 Depression Screening 1955 Fall Risk Assessment 1955 Hemoglobin A1C 1955 Hepatitis C Screening 1955 Prostate Cancer Screening-PSA 1955 Dilated Eye Exam 1955 Foot Exam 1955 Hepatitis B Screening 10/01/1973 Zoster Vaccine (1 of 2) 10/01/2005 Well Visit 65+ 10/01/2020 eGFR 09/01/2022 09/01/2021 Lipid Panel 02/28/2025 02/29/2024, 11/29, 09/01/2021, Additional history exists Influenza Vaccine (#1) 2025 , 04/25/2020, 05/13/2019, Additional history exists Colon Cancer Screening-Colonoscopy 06/10/20252014 Pneumococcal vaccine 65+ (3 of 3 - PCV20 or PCV21) 01/08/2026 01/08/2021, 05/01/2014 DTaP/Tdap/Td Vaccine (2 - Td or Tdap) 07/02/2031 07/02/2021, 08/01/2013 Procedures Procedure Name Priority Date/Time Associated Diagnosis Comments TRANSTHORACIC ECHO (TTE) COMPLETE W DOPPLER/CF WO CONTRAST Routine 03/26/2025 11:12 AM CDT Chronic systolic heart failure (HCC) Nonischemic cardiomyopathy (HCC) POCT LIPID PANEL Routine 02/29/2024 9:17 AM CDT Lipid screening BASIC METABOLIC PANEL Routine 09/01/2021 PVC (premature ventricular contraction) COLONOSCOPY 06/10/2015 12:00 AM RACK CARRIER from Last 3 Months or Most Recently Relevant to Health Maintenance Results * TRANSTHORACIC ECHO (TTE) COMPLETE W DOPPLER/CF WO CONTRAST (03/26/2025 11:12 AM CDT) Estimated EF 55 % CONS SCIMAGE EF Mod BP 50 % CONS SCIMAGE Anatomical Region Laterality Modality Ultrasound 03/26/2025 10:4 2 AM CDT Narrative 03/26/2025 12:14 PM CDT [facility] [address], [address], [place] [address] P:[phone] P:[phone] Echocardiographic Report Patient Name: OLEGARIO GARCIA W : 1955 Study Date: 03/26/2025 10:42:45 AM Sex: M Dental Surgeon: NISHA Location: [facility] Ref Provider: KARAN GOVEA Height(Cm): 185 BSA: 2.7 Weight(Kg): 142 Heart Rate: 64 BP: 110 / 64 Quality: Good Order Provider: KARAN GOVEA PROCEDURES: Echocardiographic Report: Transthoracic echocardiogram with complete 2D, M-Mode, and color Doppler examination. With Strain Analysis. INDICATIONS: I50.22 Chronic systolic (congestive) heart failure and I42.8 Other cardiomyopathies. MEASUREMENTS: 2D/MM Value Range Doppler Value Range EF Mod BP 50 % [ 52 - 72 ] AV Mean PG 3 mmHg EF Teich MM 60 % [ 52 - 72 ] AV Peak August 1.18 m/s [ 1.00 - 1.70 ] Estimated EF 55 % AV Peak PG 6 mmHg LV GLS -16.16 % AV VTI 25.91 cm LVIDd 2D 5.45 cm [ 4.20 - 5.80 ] LVOT Peak August 1.05 m/s [ 0.70 - 1.10 ] LVIDd MM 5.44 cm [ 4.20 - 5.80 ] LVOT VTI 23.12 cm LVIDs 2D 3.79 cm [ 2.50 - 4.00 ] MV E Peak August 0.48 m/s [ 0.60 - 1.30 ] LVIDs MM 3.70 cm [ 2.50 - 4.00 ] MV A Peak August 0.83 m/s [ 1.00 - 1.20 ] LVPWd 2D 1.32 cm [ 0.60 - 1.00 ] MV Decel Time 446 msec [ 104 - 258 ] LVPWd MM 1.16 cm [ 0.60 - 1.00 ] PV Peak August 1.00 m/s [ 0.40 - 0.80 ] IVSd 2D 1.09 cm [ 0.60 - 1.00 ] TR Peak August 2.33 m/s [ 1.00 - 2.80 ] IVSd MM 0.99 cm [ 0.60 - 1.00 ] TR Peak PG 22 mmHg LA Dimension MM 3.93 cm [ 3.00 - 4.00 ] RVSP 30.00 mmHg [ 10.00 - 36.00 ] AoR Diam MM 4.37 cm [ 3.10 - 3.70 ] RV S` 0.14 m/s LA Volume 79.98 ml [ 18.00 - 58.00 ] Lateral E` 0.07 m/s [ 0.10 - 0.15 ] LA Volume Index 30 cc/m2 [ 16 - 28 ] Septal E` 0.08 m/s [ 0.08 - 0.15 ] RA Volume 33.89 ml E` 0.07 m/s E/E` 7 Tapse 2.54 cm [ 1.71 - 5.00 ] 2D/MM Value Range Doppler Value Range - FINDINGS: Interpretation Site: Exam was interpreted at [facility]. Left Ventricle: Normal left ventricular systolic function. No focal wall motion abnormalities. Normal left ventricular size. Mild concentric left ventricular hypertrophy. Impaired diastolic relaxation Grade I. Ejection fraction is measured at 50 %. Ejection Fraction is visually estimated to be 55 %. Global Longitudinal Strain is -16 %. GLS is borderline. Right Ventricle: Normal right ventricular size. Normal right ventricular systolic function. Left Atrium: There is mild enlargement of left atrium. Right Atrium: The right atrium is normal in size. Atrial Septum: Normal atrial septum. Mitral Valve: Normal appearance of the mitral valve. Mild mitral valve regurgitation. There is no hemodynamically significant mitral stenosis by Doppler. Aortic Valve: No evidence of hemodynamically significant aortic stenosis by Doppler. Aortic cusps appear mildly sclerotic. Trileaflet aortic valve. Trace to mild aortic valve regurgitation. Tricuspid Valve: Normal appearance of the tricuspid valve. Normal right ventricular systolic pressure. Estimated peak RVSP is 30 mmHg. Mild tricuspid regurgitation. Pulmonic Valve: Normal appearance of the pulmonic valve. No pulmonic stenosis. Trivial regurgitation in the pulmonic valve. Pericardium: Normal pericardium with no significant pericardial effusion. Aorta: Sinus of Valsalva is moderately dilated. Sinus of Valsalva 4.5 cm. IVC: Normal size and normal respiratory collapse consistent with normal right atrial pressure (<5 mmHg). CONCLUSIONS: Normal left ventricular systolic function. No focal wall motion abnormalities. Normal left ventricular size. Mild concentric left ventricular hypertrophy. Impaired diastolic relaxation Grade I. Ejection fraction is measured at 50 %. Ejection Fraction is visually estimated to be 55 %. Global Longitudinal Strain is -16 %. GLS is borderline. There is mild enlargement of left atrium. Mild mitral valve regurgitation. Mild tricuspid regurgitation. Sinus of Valsalva is moderately dilated. Sinus of Valsalva 4.5 cm. Normal sinus rhythm. Electronically Signed By: Karan Govea MD 03/26/2025 12:13:29 PM CDT Procedure Note Karan Govea MD - 03/26/2025 [facility] [address] [facility], [address], [place] [address] P:[phone] P:[phone] Echocardiographic Report Patient Name: OLEGARIO GARCIA W : 1955 Study Date: 03/26/2025 10:42:45 AM Sex: M Dental Surgeon: NISHA Location: [facility] Ref Provider: KARAN GOVEA Height(Cm): 185 BSA: 2.7 Weight(Kg): 142 Heart Rate: 64 BP: 110 / 64 Quality: Good Order Provider: KARAN GOVEA PROCEDURES: Echocardiographic Report: Transthoracic echocardiogram with complete 2D, M-Mode, and color Dopplerexamination. With Strain Analysis. INDICATIONS: I50.22 Chronic systolic (congestive) heart failure and I42.8 Othercardiomyopathies. MEASUREMENTS: 2D/MM Value Range Doppler ValueRange EF Mod BP 50 % [ 52 - 72 ] AV Mean PG 3mmHg EF Teich MM 60 % [ 52 - 72 ] AV Peak August 1.18m/s [ 1.00 - 1.70 ] Estimated EF 55 % AV Peak PG 6mmHg LV GLS -16.16 % AV VTI 25.91cm LVIDd 2D 5.45 cm [ 4.20 - 5.80 ] LVOT Peak August 1.05m/s [ 0.70 - 1.10 ] LVIDd MM 5.44 cm [ 4.20 - 5.80 ] LVOT VTI 23.12cm LVIDs 2D 3.79 cm [ 2.50 - 4.00 ] MV E Peak August 0.48m/s [ 0.60 - 1.30 ] LVIDs MM 3.70 cm [ 2.50 - 4.00 ] MV A Peak August 0.83m/s [ 1.00 - 1.20 ] LVPWd 2D 1.32 cm [ 0.60 - 1.00 ] MV Decel Time 446msec [ 104 - 258 ] LVPWd MM 1.16 cm [ 0.60 - 1.00 ] PV Peak August 1.00m/s [ 0.40 - 0.80 ] IVSd 2D 1.09 cm [ 0.60 - 1.00 ] TR Peak August 2.33m/s [ 1.00 - 2.80 ] IVSd MM 0.99 cm [ 0.60 - 1.00 ] TR Peak PG 22mmHg LA Dimension MM 3.93 cm [ 3.00 - 4.00 ] RVSP 30.00mmHg [ 10.00 - 36.00 ] AoR Diam MM 4.37 cm [ 3.10 - 3.70 ] RV S` 0.14m/s LA Volume 79.98 ml [ 18.00 - 58.00 ] Lateral E` 0.07m/s [ 0.10 - 0.15 ] LA Volume Index 30 cc/m2 [ 16 - 28 ] Septal E` 0.08m/s [ 0.08 - 0.15 ] RA Volume 33.89 ml E` 0.07m/s E/E` 7 Tapse 2.54 cm [ 1.71 - 5.00 ] 2D/MM Value Range Doppler ValueRange - FINDINGS: Interpretation Site: Exam was interpreted at [facility]. Left Ventricle: Normal left ventricular systolic function. No focal wall motionabnormalities. Normal left ventricular size. Mild concentric left ventricular hypertrophy.Impaired diastolic relaxation Grade I. Ejection fraction is measured at 50 %. EjectionFraction is visually estimated to be 55 %. Global Longitudinal Strain is -16 %. GLS isborderline. Right Ventricle: Normal right ventricular size. Normal right ventricular systolicfunction. Left Atrium: There is mild enlargement of left atrium. Right Atrium: The right atrium is normal in size. Atrial Septum: Normal atrial septum. Mitral Valve: Normal appearance of the mitral valve. Mild mitral valve regurgitation.There is no hemodynamically significant mitral stenosis by Doppler. Aortic Valve: No evidence of hemodynamically significant aortic stenosis by Doppler.Aortic cusps appear mildly sclerotic. Trileaflet aortic valve. Trace to mild aorticvalve regurgitation. Tricuspid Valve: Normal appearance of the tricuspid valve. Normal right ventricularsystolic pressure. Estimated peak RVSP is 30 mmHg. Mild tricuspid regurgitation. Pulmonic Valve: Normal appearance of the pulmonic valve. No pulmonic stenosis. Trivialregurgitation in the pulmonic valve. Pericardium: Normal pericardium with no significant pericardial effusion. Aorta: Sinus of Valsalva is moderately dilated. Sinus of Valsalva 4.5 cm. IVC: Normal size and normal respiratory collapse consistent with normal rightatrial pressure (<5 mmHg). CONCLUSIONS: Normal left ventricular systolic function. No focal wall motionabnormalities. Normal left ventricular size. Mild concentric left ventricular hypertrophy.Impaired diastolic relaxation Grade I. Ejection fraction is measured at 50 %. EjectionFraction is visually estimated to be 55 %. Global Longitudinal Strain is -16 %. GLS isborderline. There is mild enlargement of left atrium. Mild mitral valve regurgitation. Mild tricuspid regurgitation. Sinus of Valsalva is moderately dilated. Sinus of Valsalva 4.5 cm. Normal sinus rhythm. Electronically Signed By: Karan Govea MD 03/26/2025 12:13:29 PM CDT us Karan Govea MD CV ECHO PROCEDURES Final Result * POCT lipid panel (02/29/2024 9:17 AM [...] - 10.2 mg/dl EXTERNAL LAB SCRIBED eGFR >60 > or = 60 EXTERNAL LAB SCRIBED eGFR >60 > or = 60 EXTERNAL LAB Blood specimen (specimen) 09/01/2021 Karan Govea MD LAB BLOOD ORDERABLES Marisa l Result EXTERNAL LAB * COLONOSCOPY (06/10/2015 12:00 AM RACK CARRIER) Anatomical Region Laterality Modality Other Narrative 06/10/2015 12:00 AM RACK CARRIER Ordered by an unspecified provider. Procedure Note ProviderVijay MD - 06/10/2015 12:00 AM CST PROCEDURE REPORT Patient: OLEGARIO GARCIA Account: [id number] Room No: : 1955 Patient Type: MERGED WITH [facility] Attend.: Chi Delgado M.D. Admit Date: [...] Chi Delgado MD On 06/12/2015 07:38 AM RACK CARRIER Jericho Sanchez TD: 06/11/2015 07:59 CC: Dr. Mcallister Historical Provider ENDOSCOPY PROCEDURES Marisa l Result from Last 3 Months or Most Recently Relevant to Health Maintenance Insurance MEDICARE BLUE ACCESS OOS BLUE ACCESS OOS MEDICARE BLUE ACCESS OOS Member Subscriber Plan / Payer (Ef fective 2019-Present) Name:Olegario Garcia Relation to Subscriber:Self Name:Olegario Garcia Payer ID:[id number] (NAIC) Type: [employer] Address: [address] [place] [id number] Care Teams Pleating Supervisor Relationship Specialty Start Date End Date Lidya Leger MD PCP - General 08/20/20 Liday Leger MD Family Medicine 08/20/20
--- OUTSIDE RECORDS SUMMARY | 2025-04-17 10:12 | XMS_ITS | Clinical Summary ---
Author Organization [facility] Address [address] [place] [address] Phone Care Team Providers Care Weapons System Instrument Mechanic Name Role Phone Unavailable Primary Care Provider [...] Colonoscopy 03/30/2022 03/30/2012 Colorectal Cancer Screening 03/30/2022 Influenza Immunization (#1) 04/01/202505/03, 05/30/2016, 06/19/2015, Additional history exists SARS-COV-2 Immunization ( season) 2025 06/22/2021, 10/21/2020, 09/30/2020 Respiratory Syncytial Virus (RSV) Immunization (Adult) (1 [...] Most Recently Relevant to Health Maintenance Insurance [facility]
--- OUTSIDE RECORDS SUMMARY | 2025-04-17 10:12 | XMS_ITS | Encounter Summary ---
Author Organization [facility] Healthcare Address [address] [place] [address] Care Team Providers Care Bread Oven Operator Name Role Phone Lidya Leger MD Primary Care Provider Lidya Leger MD Unavailable [phone] Encounter Details Date Type Department Care Team (Latest Contact Info) Description 03/29/2025 Results Follow-Up [facility] Cardiology [address] [place] [address] Seamus Munson MD [address] [facility] [place] [address] Transthoracic Echo (TTE) Complete W Doppler/CF Social History Tobacco Use Types Packs/Day Years Used Date Smoking Tobacco: Never Smokeless Tobacco: Never AUDIT-C Answer Date Recorded Q1: How often [...] on file Legal Sex Male 7:08 PM [employer] Gender Identity Not on file Sexual Orientation Not on file documented as of this encounter Plan of Treatment Not on file documented as of this encounter Visit Diagnoses Not on filedocumented in this encounter Care Teams Bread Oven Operator Relationship Specialty Start Date End Date Lidya Leger MD PCP - General 08/20/20 Lidya Leger MD Family Medicine 08/20/20 documented as of this encounter
== END 2025-04-17 09:24 | disposition home or self-care (01) ==
PROVIDERS: PCP Family Medicine; Visit Provider Internal Medicine Cardiovascular Disease
DX: I77.810 Thoracic aortic ectasia (principal)
CPT/HCPCS: 71260; Q9967